=== PATIENT | male | born 1945 | race Caucasian/White ===

== ENCOUNTER 2016-06-05 21:08 | Inpatient (IN) | payer MEDICARE, BC ==
[2016-06-05 23:17] LABS: Hematocrit 45 % (42-52); Hemoglobin 14.5 g/dl (14.0-18.0); Mean Corpuscular HGB Conc 32 g/dl (31-36); Mean Corpuscular Hemoglobin 29 pg (27-31); Mean Corpuscular Volume 90 fL (80-94); Mean Platelet Volume 9 um3 (7.4-10.4); Red Blood Count 5.04 10^6/ul (4.0-5.4); Red Cell Distribution Width 15 % (10.5-15); White Blood Count 9.5 10^3/ul (3.5-10.8)
[2016-06-05 23:29] LABS: BUN/Creatinine Ratio 17.9 (8-20); Calcium 10.1 mg/dL (8.6-10.3); EGFR African American 83.8 (>60); EGFR Non-African American 65.2 (>60); Globulin 2.9 g/dL (2-4); Potassium 4.2 mmol/L (3.5-5.0); Total Bilirubin 0.5 mg/dL (0.2-1.0); Total Protein 6.9 g/dL (6.4-8.9)
[2016-06-05 23:34] LABS: Troponin I 0.18 ng/mL (<0.04)
--- NOTE | 2016-06-05 23:53 | ED ---
Anam Royal Janilya, scribed for Adalberto Ahuja MD on 06/05/16 at 2316 . Shortness of Breath - HPI Summary HPI Summary: A 70 y/o male came in to [facility] presenting w/ a sudden onset of intermittent SOB that occurred at 1400 and again at 1999. Pt states that he was walking out the door when he suddenly had SOB for about 8 minutes. He also felt weak and faint, and had a cough with SOB. Pt denies having any CP or fever. After this episode, pt felt much better and decided not to come to the ED. He went home and rested for the rest of the afternoon. At 1999, he walked around the living room when he had SOB once again, which prompted his visit to [facility] today. PMHx respiratory infection for about a month. It cleared up a week ago without any Abx. No SHx of tobacco use. - History of Current Complaint Chief Complaint: EDShortnessOfBreath Time Seen by Provider: 06/05/16 23:03 Hx Obtained From: Patient Onset/Duration: Sudden Onset, Lasting Minutes, Still Present Current Severity: Moderate Aggrevating Factors: Nothing Alleviating Factors: Nothing Associated Signs & Symptoms: Cough (Nonproductive) - Allergy/Home Medications Allergies/Adverse Reactions: Allergies Allergy/AdvReac Type Severity Reaction Status Date / Time Penicillins Allergy Severe Rash Verified 06/05/16 22:09 Bee Venom Allergy Anaphylatic Verified 06/05/16 22:09 Shock Home Medications: Home Medications Aspirin EC Low Dose* 81 mg PO DAILY 06/05/16 [History Confirmed 06/05/16] PMH/Surg Hx/FS Hx/Imm Hx Endocrine/Hematology History: Reports: Hx Diabetes Cardiovascular History: Reports: Hx Hypertension - TAKES MEDICATION Denies: Hx Pacemaker/ICD History: Denies: Hx Dialysis, Hx Renal Disease Sensory History: Denies: Hx Hearing Aid Psychiatric History: Denies: Hx Panic Disorder - Cancer History Cancer Type, 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) Hx Chemotherapy: No Hx Radiation Therapy: No - Surgical History Surgery Procedure, Year, and Place: PARATHYROID TUMOR SURGERY - Immunization History Date of Tetanus Vaccine: utd Date of Influenza Vaccine: utd Infectious Disease History: No Infectious Disease History: Denies: Traveled Outside the [place] in Last 30 Days - Family History Known Family History: Positive: Diabetes Negative: Hypertension - Social History Lives: With Family Alcohol Use: Rare Substance Use Type: Reports: None Smoking Status (MU): Never Smoked Tobacco Review of Systems Negative: Fever Negative: Chest Pain Positive: Shortness Of Breath, Cough Positive: Weakness All Other Systems Reviewed And Are Negative: Yes Physical Exam Triage Information Reviewed: Yes Vital Signs On Initial Exam: Initial Vitals Temp Pulse Resp BP Pulse Ox 97.6 F 105 20 158/104 96 06/05/16 21:30 06/05/16 21:30 06/05/16 21:30 06/05/16 21:30 06/05/16 21:30 Vital Signs Reviewed: Yes Appearance: Positive: No Pain Distress, Obese Skin: Positive: Warm Head/Face: Positive: Normal Head/Face Inspection Eyes: Positive: PANCHO ENT: Positive: Hearing grossly normal Neck: Positive: Supple Respiratory/Lung Sounds: Positive: Clear to Auscultation, Breath Sounds Present Cardiovascular: Positive: Normal Abdomen Description: Positive: Nontender, Soft Bowel Sounds: Positive: Present Musculoskeletal: Positive: Strength/ROM Intact Neurological: Positive: Sensory/Motor Intact Psychiatric: Positive: Affect/Mood Appropriate - Kimberlee Coma Scale Coma Scale Total: 15 Diagnostics - Vital Signs Vital Signs Temp Pulse Resp BP Pulse Ox 06/05/16 21:30 97.6 F 105 20 158/104 96 - Laboratory Lab Results: Lab Results 06/05/16 06/05/16 06/05/16 Range/Units 22:15 22:15 22:15 WBC 9.5 (3.5-10.8) 10^3/ul RBC 5.04 (4.0-5.4) 10^6/ul Hgb 14.5 (14.0-18.0) g/dl Hct 45 (42-52) % MCV 90 (80-94) fL MCH 29 (27-31) pg MCHC 32 (31-36) g/dl RDW 15 (10.5-15) % Plt Count 168 (150-450) 10^3/ul MPV 9 (7.4-10.4) um3 Neut % (Auto) 59.2 (38-83) % Lymph % (Auto) 28.2 (25-47) % Throckmorton % (Auto) 9.5 H (1-9) % Eos % (Auto) 2.5 (0-6) % Baso % (Auto) 0.6 (0-2) % Absolute Neuts (auto) 5.6 (1.5-7.7) 10^3/ul Absolute Lymphs (auto) 2.7 (1.0-4.8) 10^3/ul Absolute Monos (auto) 0.9 H (0-0.8) 10^3/ul Absolute Eos (auto) 0.2 (0-0.6) 10^3/ul Absolute Basos (auto) 0.1 (0-0.2) 10^3/ul Absolute Nucleated RBC 0.01 10^3/ul Nucleated RBC % 0.1 D-Dimer, Quantitative (Less Than 230) ng/mL Sodium 138 (133-145) mmol/L Potassium 4.2 (3.5-5.0) mmol/L Chloride 105 (101-111) mmol/L Carbon Dioxide 28 (22-32) mmol/L Anion Gap 5 (2-11) mmol/L BUN 20 (6-24) mg/dL Creatinine 1.12 (0.67-1.17) mg/dL Est GFR ( Amer) 83.8 (>60) Est GFR (Non-Af Amer) 65.2 (>60) BUN/Creatinine Ratio 17.9 (8-20) Glucose 117 H (70-100) mg/dL Lactic Acid 1.7 (0.5-2.0) mmol/L Calcium 10.1 (8.6-10.3) mg/dL Total Bilirubin 0.50 (0.2-1.0) mg/dL AST 20 (13-39) U/L ALT 17 (7-52) U/L Alkaline Phosphatase 59 (34-104) U/L Troponin I 0.18 H* (<0.04) ng/mL Total Protein 6.9 (6.4-8.9) g/dL Albumin 4.0 (3.2-5.2) g/dL Globulin 2.9 (2-4) g/dL Albumin/Globulin Ratio 1.4 (1-3) 06/05/16 Range/Units 22:15 WBC (3.5-10.8) 10^3/ul RBC (4.0-5.4) 10^6/ul Hgb (14.0-18.0) g/dl Hct (42-52) % MCV (80-94) fL MCH (27-31) pg MCHC (31-36) g/dl RDW (10.5-15) % Plt Count (150-450) 10^3/ul MPV (7.4-10.4) um3 Neut % (Auto) (38-83) % Lymph % (Auto) (25-47) % Throckmorton % (Auto) (1-9) % Eos % (Auto) (0-6) % Baso % (Auto) (0-2) % Absolute Neuts (auto) (1.5-7.7) 10^3/ul Absolute Lymphs (auto) (1.0-4.8) 10^3/ul Absolute Monos (auto) (0-0.8) 10^3/ul Absolute Eos (auto) (0-0.6) 10^3/ul Absolute Basos (auto) (0-0.2) 10^3/ul Absolute Nucleated RBC 10^3/ul Nucleated RBC % D-Dimer, Quantitative > 1050 H (Less Than 230) ng/mL Sodium (133-145) mmol/L Potassium (3.5-5.0) mmol/L Chloride (101-111) mmol/L Carbon Dioxide (22-32) mmol/L Anion Gap (2-11) mmol/L BUN (6-24) mg/dL Creatinine (0.67-1.17) mg/dL Est GFR ( Amer) (>60) Est GFR (Non-Af Amer) (>60) BUN/Creatinine Ratio (8-20) Glucose (70-100) mg/dL Lactic Acid (0.5-2.0) mmol/L Calcium (8.6-10.3) mg/dL Total Bilirubin (0.2-1.0) mg/dL AST (13-39) U/L ALT (7-52) U/L Alkaline Phosphatase (34-104) U/L Troponin I (<0.04) ng/mL Total Protein (6.4-8.9) g/dL Albumin (3.2-5.2) g/dL Globulin (2-4) g/dL Albumin/Globulin Ratio (1-3) Result Diagrams: 06/05/16 22:15 06/05/16 22:15 Lab Statement: Any lab studies that have been ordered have been reviewed, and results considered in the medical decision making process. - Radiology CXR Xray Interpretation: No Acute Changes - IMPRESSION: Normal Radiology Interpretation Completed By: ED Physician - Dr. Ahuja - EKG 2114 Cardiac Rate: NL - 88 bpm EKG Rhythm: Sinus Rhythm ST Segment: Normal Ectopy: None Re-Evaluation - Re-Evaluation First Eval Comment: results d/w pt Course/Dx - Diagnoses Provider Diagnoses: Pulmonary embolism - Physician Notifications Discussed Care of Patient With: Dr. Akbar (hospitalist) at 1022: agreed to evaluate pt for admission. - Critical Care Time Critical Care Time: 30-74 min Discharge - Discharge Plan Condition: Guarded Disposition: ADMITTED TO [facility] documentation as recorded by the Anam paulino Janilya accurately reflects the service I personally performed and the decisions made by Leigha davalos David, MD.
[2016-06-06] MEDS ORDERED: Iodixanol* (CONTRAST) 320 MG/ML 100 ML SDV IV ONE (01:57)
[2016-06-06] MEDS ORDERED: CABERGOLINE 0.25 MG PO SCH (03:15)
[2016-06-06] MEDS ORDERED: Dextrose 50% Syringe 50 ML* 25 GM/50 ML SYRINGE IV PUSH PRN (03:20)
[2016-06-06] MEDS ORDERED: Heparin VIAL(*) 5000 UNITS/ML VIAL (FIVE THOUSAND) IV SCH (04:00)
[2016-06-06 04:17] LABS: Hematocrit 43 % (42-52); Hemoglobin 13.9 g/dl (14.0-18.0); Mean Corpuscular HGB Conc 33 g/dl (31-36); Mean Corpuscular Hemoglobin 29 pg (27-31); Mean Corpuscular Volume 89 fL (80-94); Mean Platelet Volume 9 um3 (7.4-10.4); Red Blood Count 4.79 10^6/ul (4.0-5.4); Red Cell Distribution Width 15 % (10.5-15); White Blood Count 8.8 10^3/ul (3.5-10.8)
[2016-06-06] MEDS: Heparin DRIP 25,000 UNITS(*) 25,000 UNITS/500 ML BAG IV SCH ×3 (05:18→21:46)
--- NOTE | 2016-06-06 08:28 | HP ---
HISTORY AND PHYSICAL: DATE OF ADMISSION: 06/06/16. CHIEF COMPLAINT: Shortness of breath. HISTORY OF PRESENT ILLNESS: The patient is a 70-year-old gentleman who presents to the [facility] with a chief complaint that around 2 p.m. he started having acute episodes of shortness of breath. He noticed increased feelings of fatigue and just an overall feeling of unwellness. He was on his way here because of that, and around 2 minutes later he started feeling better and thought may be he more of it than he should. He went home and relaxed most of the day then. However, then again later in the day, he had increased shortness of breath. These feelings resurfaced when he came to the hospital. He did have some increased swelling in his legs. He had no increased shortness of breath lying flat. He never had any chest pain. He has never had any palpitations. In the ED, the patient was evaluated and finally found to have a bilateral pulmonary embolism. PAST MEDICAL HISTORY: Significant for: 1. Diabetes mellitus. 2. Prolactinoma. 3. MEN1 syndrome. 4. Hypertension. PAST SURGICAL HISTORY: Significant for parathyroidectomy x3. CURRENT MEDICATIONS: 1. Aspirin 81 mg daily. 2. Cabergoline 0.25 mg as directed. 3. Atenolol 25 mg daily. 4. Vitamin B12 1000 mg take 2 monthly. 5. Metformin 1000 mg twice daily. 6. Calcium with vitamin D 630 mg daily. ALLERGIES/ADVERSE REACTIONS: To PENICILLIN. FAMILY HISTORY: Father with diabetes, mother with diabetes. SOCIAL HISTORY: No tobacco, rare alcohol. He is a research qc scientist. REVIEW OF SYSTEMS: A 14-point review of systems was completed with the patient. All pertinent positives and negatives are in the history of present illness; otherwise, it is negative. PHYSICAL EXAMINATION GENERAL: Overweight gentleman lying in bed, in no acute distress. VITAL SIGNS: Blood pressure 116/73, pulse ox 100% on 2 L, respiratory rate 22 breaths per minute, heart rate is 70 beats per minute, temperature 97.8 degrees. HEENT: Normocephalic and atraumatic. Pupils equal, round and reactive to light. Moist mucous membranes. NECK: Supple with no JVD, bruits, palpable thyroid or lymphadenopathy. CHEST: Clear to auscultation and percussion bilaterally. CARDIOVASCULAR: S1, S2 appreciated. ABDOMEN: Positive bowel sounds in all 4 quadrants. Soft, nontender, nondistended. No hepatosplenomegaly. EXTREMITIES: No cyanosis or clubbing. He does have bilateral edema. NEUROLOGICAL: Alert and oriented x3, moves all extremities. SKIN: No rashes or abnormalities. DIAGNOSTIC STUDIES/LAB DATA: White count is 9.5, hemoglobin 14.5, hematocrit 45, platelets are 168. Sodium is 138, potassium 4.2, chloride is 105, CO2 28, BUN 20, creatinine 1.12, glucose is 117, troponin 0.18. D-dimer greater than 1050. Chest x-ray shows no acute infiltrates. EKG shows normal sinus rhythm at 88 beats per minute, normal axis, no acute ST- T wave changes. Chest CTA shows bilateral pulmonary emboli. ASSESSMENT AND PLAN: 1. Pulmonary embolism. Place the patient on heparin drip. Dr. Chand will see him later today and discuss the possible use of Xarelto, Eliquis or Coumadin. The patient might have a hypercoagulable workup as an outpatient. 2. Diabetes mellitus. Stable, home metformin, continue lispro sliding scale insulin. 3. Prolactinoma. Continue cabergoline. 4. Fluids, electrolytes, and nutrition. Consistent carb diet. 5. Deep vein thrombosis prophylaxis. Heparin drip. 6. The patient is a full code. TIME SPENT: Over 75 minutes were spent on this H and P, and more than 40 minutes of which was spent in direct bota-hi-miud contact with the patient in evaluation, physical exam, counseling, and coordination of care. CC: Dr. Sundeep Chand.* [id number] #: [id number] [facility]
[2016-06-06] MEDS: Calcium/Vitamin D TAB 250/125* TAB PO SCH (09:03)
[2016-06-06] MEDS: Aspirin EC Low Dose* 81 MG TAB.EC PO SCH (09:03)
[2016-06-06] MEDS: Atenolol TAB* 25 MG PO SCH (09:04)
[2016-06-06] MEDS: Insulin LISPRO* 1 UNITS UNIT SUBCUT SCH ×4 (09:04→21:04)
--- NOTE | 2016-06-06 10:40 | RAD ---
Indication: Chest pain. CTA of the chest performed after IV contrast administration. Coronal and sagittal reconstructed images were obtained. A total of Administered 96.0 ml of VISAPAQUE 320 mgi/ml was injected intravenously. The pulmonary arterial tree is well opacified. Large filling defects are noted in the left main pulmonary artery extending to the left lingular and lower lobar and segmental arteries. Filling defects are noted in the right main pulmonary artery extending into the right lower lobe and right middle lobe arteries extending into the segmental arteries. This is consistent with large pulmonary emboli bilaterally. The heart demonstrates no pericardial effusion. The trachea and major bronchi appear patent. The lung howell demonstrate no evidence of pleural fluid, nodules or masses. There is no mediastinal or hilar adenopathy noted. Inferior thyroid lobes are unremarkable. The heart demonstrates no pericardial effusion. The visualized abdominal organs are unremarkable. The bony structures are grossly unremarkable. IMPRESSION: BILATERALLY LARGE PULMONARY EMBOLI ARE NOTED IN BOTH PULMONARY ARTERIES EXTENDING INTO THE SEGMENTAL AND LOBAR BRANCHES OF BOTH LUNG HOWELL. NO EVIDENCE OF ALVEOLAR CONSOLIDATION IS NOTED.
[2016-06-06 11:32] LABS: Troponin I 0.09 ng/mL (<0.04)
--- NOTE | 2016-06-06 14:44 | ECHO ---
Amended Report Patient: EVA FERNANDEZ [facility] Rec#: [id number] : 1945 Date: 06/06/2016 Age: 70y Height: 172.7 cm / 68.0 in Weight: 135.2 kg / 298.0 lbs Sex: M BSA: 2.4 Room#: 431 Admit Date#: 06/06/2016 Type: Inpatient Referring: Gabriel Akbar MD Reading: Michelet Desai MD Machine Design Checker: Veronica Fofana RN RDCS CC: Sundeep Chand MD Transthoracic Echocardiogram Indication: Pulmonary embolism BP: 145/81 HR: 60 Rhythm: NSR Findings History: DM, HTN, morbid obesity, recent respiratory infection Technical Comments: The study is technically limited due to patient body habitus. Completed at 1305. Left Ventricle: The left ventricular chamber size is normal. Mild concentric left ventricular hypertrophy is observed. Mild global hypokinesis of the left ventricle is observed. There is mildly decreased left ventricular systolic function. The estimated ejection fraction is 45-50%. Abnormal left ventricular diastolic filling is observed, consistent with impaired relaxation. Left Atrium: The left atrium is mild to moderately dilated. Right Ventricle: The right ventricular cavity size is normal. The right ventricular global systolic function is moderately reduced. Right Atrium: The right atrium is mildly dilated. There is no evidence of patent foramen ovale shunting. on color doppler flow interrogation. There is evidence of an atrial septal aneurysm. Aortic Valve: The aortic valve is trileaflet. The aortic valve leaflets are mildly thickened. There is no evidence of aortic regurgitation. There is no evidence of aortic stenosis. Mitral Valve: The mitral valve leaflets are mildly thickened. There is a trace of mitral regurgitation. Tricuspid Valve: The tricuspid valve leaflets are normal. There is trace tricuspid regurgitation. There is evidence of moderate pulmonary hypertension. Pulmonic Valve: The pulmonic valve appears normal. There is no evidence of pulmonic regurgitation. There is no pulmonic stenosis. Pericardium: There is no significant pericardial effusion. A pericardial fat pad is visualized. Aorta: There is no dilatation of the ascending aorta. There is no dilatation of the aortic arch. The aortic root is normal in size. Pulmonary Artery: The main pulmonary artery is not well visualized. Venous: The inferior vena cava is dilated. There is an approximate 50% respiratory change in the inferior vena cava dimension. Conclusions There is mildly decreased left ventricular systolic function. The estimated ejection fraction is 45-50%. Mild global hypokinesis of the left ventricle is observed. The left ventricular chamber size is normal. Mild concentric left ventricular hypertrophy is observed. Abnormal left ventricular diastolic filling is observed, consistent with impaired relaxation. The left atrium is mild to moderately dilated. The right ventricular cavity size is normal. The right ventricular global systolic function is moderately reduced. The right atrium is mildly dilated. There is evidence of moderate pulmonary hypertension. There is no prior echocardiogram available to compare with at this time. These results have been called to the attention of the attending physician, Dr. Rosalia Enriquez. Measurements Name Value Normal Range RVIDd (AP) 2D 3 cm (0.9 - 2.6) RVDdMajor (2D) 3.72 cm (2.2 - 4.4) RAd ISD 4CH 5.1 cm (3.4 - 4.9) RA (A4C)W 4.3 cm (2.9 - 4.6) IVSd (2D) 1.4 cm (0.6 - 1) LVPWd (2D) 1 cm (0.6 - 1) LVIDd (2D) 5 cm (3.6 - 5.4) LVIDs (2D) 3.9 cm - LV FS (2D) 22 % (25 - 45) Aortic Annulus 2.5 cm (1.4 - 2.6) Ao root diameter (2D) 3.2 cm (2.1 - 3.5) Ascending Ao 3 cm (2.1 - 3.4) Aortic arch 2.5 cm (1.8 - 3.4) LA dimension (AP) 2D 3.3 cm (2.3 - 3.8) LAd ISD 4CH 5.7 cm (2.9 - 5.3) LA ISD 4CH W 4.1 cm (2.5 - 4.5) Name Value Normal Range LA ESV SP 4CH (A/L) 58 ml - LA ESV SP 2CH (A/L) 71 ml - LA ESV BP (A/L) 65 ml - LA ESV BP (A/L) index 27 ml/m2 - LA ESV SP 4CH (MOD) 55 ml - LA ESV SP 2CH (MOD) 68 ml - Name Value Normal Range MV E-wave Vmax 0.45 m/sec - MV deceleration time 279 msec - MV A-wave Vmax 0.74 m/sec - MV E:A ratio 0.6 ratio - LV septal e' Vmax 0.07 m/sec - LV lateral e' Vmax 0.07 m/sec - LV E:e' septal ratio 6.4 ratio - LV E:e' lateral ratio 6.4 ratio - Name Value Normal Range AV Vmax 1.2 m/sec - LVOT Vmax 1.1 m/sec - CHERRIE Vmax 0.8 m/sec - Name Value Normal Range TR Vmax 3.1 m/sec - TR peak gradient 38 mmHg - RAP 15 mmHg - RVSP 53 mmHg - IVC diameter 2.6 cm - Name Value Normal Range PV Vmax 0.56 m/sec -
[2016-06-06] MEDS ORDERED: Warfarin TAB(*) 10 MG PO ONE (17:00)
--- NOTE | 2016-06-06 19:07 | RAD ---
Indication: Pulmonary emboli Duplex Doppler sonography of the deep venous system of both lower extremities was performed. Bilaterally the common femoral veins, proximal greater saphenous veins, proximal deep femoral veins, femoral veins, appear patent and compressible. The left popliteal vein and posterior tibial veins appear patent and compressible. The right popliteal vein and one of the paired posterior tibial vein demonstrates echogenic material within it with noncompressibility and no flow. This is consistent with deep venous thrombosis. The peroneal veins are limited in evaluation bilaterally due to body habitus. IMPRESSION: DEEP VENOUS THROMBOSIS OF THE RIGHT POPLITEAL VEIN AND ONE OF THE PAIRED RIGHT POSTERIOR TIBIAL VEINS. PERONEAL VEINS ARE NOT VISUALIZED BILATERALLY.
[2016-06-07 04:06] LABS: Hematocrit 42 % (42-52); Hemoglobin 13.7 g/dl (14.0-18.0); Mean Corpuscular HGB Conc 33 g/dl (31-36); Mean Corpuscular Hemoglobin 29 pg (27-31); Mean Corpuscular Volume 88 fL (80-94); Mean Platelet Volume 9 um3 (7.4-10.4); Red Blood Count 4.77 10^6/ul (4.0-5.4); Red Cell Distribution Width 15 % (10.5-15); White Blood Count 7.8 10^3/ul (3.5-10.8)
[2016-06-07 04:23] LABS: BUN/Creatinine Ratio 12.6 (8-20); Calcium 9.9 mg/dL (8.6-10.3); EGFR African American 84.7 (>60); EGFR Non-African American 65.9 (>60); Potassium 4.1 mmol/L (3.5-5.0)
--- NOTE | 2016-06-07 08:03 | PN ---
Subjective - Subjective Reason for Note: Progress Note History: I reviewed the Mr Rushing's presentation with the patient and Dr. Fatima's H and P. He states he has a URI for several weeks and was more sedentary and on the day of presentation he had 3 long phone calls and sat on a chair that was more firm than usual and that might have compressed his leg veins. He developed acute dyspnea, no chest pain and this lasted 15 mins, he then had more dyspnea than usual and hence came to the ED. He is currently being treated with warfarin and unfractionated heparin. His high BMI may preclude the use of both subcutaneous fractionated heparin and factor Xa inhibitors. Today he is feeling fine - no chest pain, dyspnea and his O2 sats are in the 90s on room air. 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 obesity) (Chronic) E66.01 Prolactinoma (Chronic) D35.2 Type 2 diabetes mellitus, controlled (Chronic) E11.9 Current Medications: Current Medications Aspirin (Aspirin Ec Low Dose*) 81 mg PO DAILY [facility] Last Admin: 06/06/16 09:03 Dose: 81 mg Atenolol (Tenormin Tab*) 25 mg PO DAILY [facility] Last Admin: 06/06/16 09:04 Dose: 25 mg Calcium/Vitamin D (Oscal D Tab 250/125*) 1 tab PO DAILY [facility] Last Admin: 06/06/16 09:03 Dose: 1 tab Cyanocobalamin (Vitamin B12 Inj *) 1,000 mcg IM MONTHLY [facility] Dextrose (D50w Syringe 50 Ml*) 12.5 gm IV PUSH .FOR FS < 60 - SS PRN PRN Reason: FS < 60 Heparin Sodium (Porcine) (Heparin Vial(*)) 0 units IV .PER PROTOCOL [facility] PRN Reason: Protocol Heparin Sodium/Dextrose (Heparin Drip 25,000 Units(*)) 25,000 units in 500 mls @ 0 mls/hr IV .NO INITIAL BOLUS [facility]; As Directed PRN Reason: Protocol Last Admin: 06/06/16 21:46 Dose: 30 mls/hr Insulin Human Lispro (Humalog*) 0 units SUBCUT ACHS [facility] PRN Reason: Protocol Last Admin: 06/06/16 21:04 Dose: Not Given Cabergoline 0.25 Mg 0.25 mg PO .SEE INSTRUCTIONS [facility] Pharmacy Profile Note (Coumadin Daily Reminder*) 1 note FOLLOW UP 1700 [facility] Last Admin: 06/06/16 21:49 Dose: Not Given Home Medications: Home Medications Medication Instructions Recorded Confirmed Type Atenolol 25 mg PO DAILY 03/02/12 06/05/16 History Cabergoline 0.25 mg PO SEE INSTRUCTIONS 03/02/12 06/05/16 History Calcium + D 630 mg PO DAILY 03/02/12 06/05/16 History Vitamin B 12 1,000 mg INJ MONTHLY 03/02/12 06/05/16 History metFORMIN TAB* 1,000 mg PO BID 03/02/12 06/05/16 History Aspirin EC Low Dose* 81 mg PO DAILY 06/05/16 06/05/16 History Allergies: Allergies Allergy/AdvReac Type Severity Reaction Status Date / Time Penicillins Allergy Severe Rash Verified 06/05/16 22:09 Bee Venom Allergy Anaphylatic Verified 06/05/16 22:09 Shock Objective - Vital Signs Vital Signs: Vital Signs 06/06/16 06/06/16 06/06/16 08:00 11:55 16:15 Temperature 98.1 F 98.3 F Pulse Rate 64 62 Respiratory 16 16 14 Rate Blood Pressure 134/81 120/74 (mmHg) O2 Sat by Pulse 92 96 Oximetry 06/06/16 06/06/16 06/06/16 20:00 20:53 23:31 Temperature 98.5 F 97.8 F Pulse Rate 59 66 Respiratory 16 20 16 Rate Blood Pressure 137/78 141/67 (mmHg) O2 Sat by Pulse 96 94 Oximetry 06/07/16 03:42 Temperature 98.0 F Pulse Rate 70 Respiratory 16 Rate Blood Pressure 138/68 (mmHg) O2 Sat by Pulse 91 Oximetry - Intake and Output Intake and Output: Intake & Output 06/04/16 06/05/16 06/06/16 06/07/16 11:59 11:59 11:59 11:59 Intake Total 200 1800 Balance 200 1800 Weight 300 lb 12.8 oz Intake: Oral 200 1800 Other: Estimated Void Large Medium # Bowel Movements 0 0 # Voids 1 0 ADLs: Meal Record Start: 06/06/16 04: 04 Freq: DAILY@0900,1400,1800 Status: Active Document 06/06/16 09:00 [id number] (Rec: 06/06/16 09:44 [id number] [id number]) Document 06/06/16 14:00 [id number] (Rec: 06/06/16 14:42 [id number] TELE-C10) Document 06/06/16 18:00 [id number] (Rec: 06/06/16 21:10 [id number] TELE-C33) Intake and Output Start: 06/06/16 04: 04 Freq: DAILY@0600,1400,2200 Status: Active Document 06/06/16 06:00 [id number] (Rec: 06/06/16 06:11 [id number] TELE-C34) Document 06/06/16 14:00 [id number] (Rec: 06/06/16 14:42 [id number] TELE-C10) Document 06/06/16 22:00 [id number] (Rec: 06/06/16 23:06 [id number] TELE-C33) Document 06/07/16 05:40 [id number] (Rec: 06/07/16 05:41 [id number] TELE-C34) - Physical Exam General Physical Exam Comment: Sitting comfortably in a chair - hemodynamically stable General: No Cyanosis, No Anemia, No Jaundice, No Lymphadenopathy, No Clubbing Endocrine: Yes Central Obesity, No Acromegaly, No Vitiligo, No Flushing, No Acanthosis nigricans, No Violaceious striae, No [place] Syndrome, No Buccal pigmenatation, No Leong Crease Pigmentation Lungs and Chest: Yes: Chest Expansion Full, Chest Expansion Symetrica, Percussion Note Resonant, Vessicular Breath Sounds. No: Crackles, Wheezes Heart Rate and Rhythm: Regular JVP: Not Elevated Additional Cardiovascular: Yes: Normal Heart Sounds. No: Heart Murmur, Pedal Edema Abdominal Exam: Yes: Soft, Bowel Sounds Present. No: Distention, Hepatomegaly, Abdominal Tenderness - Extremities Cranial Nerves II-XII Intact: Yes Limbs: Normal Power, Normal Tone Results - Results Lab Results: Laboratory Results - last 24 hr 06/06/16 06/06/16 06/06/16 07:48 08:00 12:13 WBC RBC Hgb Hct MCV MCH MCHC RDW Plt Count MPV Neut % (Auto) Lymph % (Auto) Alpine % (Auto) Eos % (Auto) Baso % (Auto) Absolute Neuts (auto) Absolute Lymphs (auto) Absolute Monos (auto) Absolute Eos (auto) Absolute Basos (auto) Absolute Nucleated RBC Nucleated RBC % INR (Anticoag Therapy) APTT Sodium Potassium Chloride Carbon Dioxide Anion Gap BUN Creatinine Est GFR ( Amer) Est GFR (Non-Af Amer) BUN/Creatinine Ratio Glucose 232 H POC Glucose (mg/dL) 401 H* 101 Calcium Troponin I 0.09 H* 06/06/16 06/06/16 06/06/16 13:35 16:16 20:56 WBC RBC Hgb Hct MCV MCH MCHC RDW Plt Count MPV Neut % (Auto) Lymph % (Auto) Alpine % (Auto) Eos % (Auto) Baso % (Auto) Absolute Neuts (auto) Absolute Lymphs (auto) Absolute Monos (auto) Absolute Eos (auto) Absolute Basos (auto) Absolute Nucleated RBC Nucleated RBC % INR (Anticoag Therapy) 0.95 APTT 78.1 H Sodium Potassium Chloride Carbon Dioxide Anion Gap BUN Creatinine Est GFR ( Amer) Est GFR (Non-Af Amer) BUN/Creatinine Ratio Glucose POC Glucose (mg/dL) 158 H 107 H Calcium Troponin I 06/06/16 06/07/16 06/07/16 22:33 03:51 03:52 WBC RBC Hgb Hct MCV MCH MCHC RDW Plt Count MPV Neut % (Auto) Lymph % (Auto) Alpine % (Auto) Eos % (Auto) Baso % (Auto) Absolute Neuts (auto) Absolute Lymphs (auto) Absolute Monos (auto) Absolute Eos (auto) Absolute Basos (auto) Absolute Nucleated RBC Nucleated RBC % INR (Anticoag Therapy) 1.00 APTT 98.3 H Sodium 134 Potassium 4.1 Chloride 105 Carbon Dioxide 24 Anion Gap 5 BUN 14 Creatinine 1.11 Est GFR ( Amer) 84.7 Est GFR (Non-Af Amer) 65.9 BUN/Creatinine Ratio 12.6 Glucose 127 H POC Glucose (mg/dL) Calcium 9.9 Troponin I 06/07/16 06/07/16 03:57 06:11 WBC 7.8 RBC 4.77 Hgb 13.7 L Hct 42 MCV 88 MCH 29 MCHC 33 RDW 15 Plt Count 160 MPV 9 Neut % (Auto) 51.5 Lymph % (Auto) 34.8 Alpine % (Auto) 8.7 Eos % (Auto) 4.3 Baso % (Auto) 0.7 Absolute Neuts (auto) 4.0 Absolute Lymphs (auto) 2.7 Absolute Monos (auto) 0.7 Absolute Eos (auto) 0.3 Absolute Basos (auto) 0.1 Absolute Nucleated RBC 0 Nucleated RBC % 0.1 INR (Anticoag Therapy) APTT 66.4 H Sodium Potassium Chloride Carbon Dioxide Anion Gap BUN Creatinine Est GFR ( Amer) Est GFR (Non-Af Amer) BUN/Creatinine Ratio Glucose POC Glucose (mg/dL) Calcium Troponin I Radiology Results: Patient Name: EVA RUSHING Medical Record#: [id number] Ordering Physician: Gabriel Akbar MD Acct.#: [id number] : 1945 Age: 70 Sex: M Location: [address] [place] [address]/TELEMETRY Exam Date: 06/06/16319 ADM Status: ADM IN Order Information: VL LOWER EXT VEINS BILATERAL Accession Number: [id number] CPT: 18618 Indication: Pulmonary emboli Duplex Doppler sonography of the deep venous system of both lower extremities was performed. Bilaterally the common femoral veins, proximal greater saphenous veins, proximal deep femoral veins, femoral veins, appear patent and compressible. The left popliteal vein and posterior tibial veins appear patent and compressible. The right popliteal vein and one of the paired posterior tibial vein demonstrates echogenic material within it with noncompressibility and no flow. This is consistent with deep venous thrombosis. The peroneal veins are limited in evaluation bilaterally due to body habitus. IMPRESSION: DEEP VENOUS THROMBOSIS OF THE RIGHT POPLITEAL VEIN AND ONE OF THE PAIRED RIGHT POSTERIOR TIBIAL VEINS. PERONEAL VEINS ARE NOT VISUALIZED BILATERALLY. <Electronically signed by Abigail Nolan MD in OV> 06/06/161903 Dictated By: Abigail Nolan MD Dictated Date/Time: 06/06/161903 Transcribed Date/Time: 06/06/161901 Copy to: CC:Sundeep Chand MD; Gabriel Akbar MD Imaging - [facility] Imaging - [facility] Imaging - [facility] [address] [address] [place] [address] [place] [address] ph [phone]) ph ([phone]) ph ([phone]) Patient Name: EVA RUSHING Medical Record#: [id number] Ordering Physician: Adalberto Ahuja MD Acct.#: [id number] : 1945 Age: 70 Sex: M Location: [address] [place] [address] - MEDICAL/TELEMETRY Exam Date: 06/05/162351 ADM Status: ADM IN Order Information: CTA CHEST Accession Number: [id number] CPT: 73776 Indication: Chest pain. CTA of the chest performed after IV contrast administration. Coronal and sagittal reconstructed images were obtained. A total of Administered 96.0 ml of VISAPAQUE 320 mgi/ml was injected intravenously. The pulmonary arterial tree is well opacified. Large filling defects are noted in the left main pulmonary artery extending to the left lingular and lower lobar and segmental arteries. Filling defects are noted in the right main pulmonary artery extending into the right lower lobe and right middle lobe arteries extending into the segmental arteries. This is consistent with large pulmonary emboli bilaterally. The heart demonstrates no pericardial effusion. The trachea and major bronchi appear patent. The lung howell demonstrate no evidence of pleural fluid, nodules or masses. There is no mediastinal or hilar adenopathy noted. Inferior thyroid lobes are unremarkable. The heart demonstrates no pericardial effusion. The visualized abdominal organs are unremarkable. The bony structures are grossly unremarkable. IMPRESSION: BILATERALLY LARGE PULMONARY EMBOLI ARE NOTED IN BOTH PULMONARY ARTERIES EXTENDING INTO THE SEGMENTAL AND LOBAR BRANCHES OF BOTH LUNG HOWELL. NO EVIDENCE OF ALVEOLAR CONSOLIDATION IS NOTED. <Electronically signed by Abigail Nolan MD in OV> 06/06/16 1036 Dictated By: Abigail Nolan MD Dictated Date/Time: 06/06/16 1036 Transcribed Date/Time: 06/06/16 1027 Copy to: CC:Sundeep Chand MD; Adalberto Ahuja MD; Gabriel Akbar MD Imaging - [facility] Imaging - [facility] Imaging - [facility] [address] [place] [address] [place] [address] [place] [address] ph ([phone]) ph ([phone]) ph ([phone]) 1 of 1 1 of 1 Other Results/Reports: Transthoraic echocardiogram conclusions: Conclusions There is mildly decreased left ventricular systolic function. The estimated ejection fraction is 45-50%. Mild global hypokinesis of the left ventricle is observed. The left ventricular chamber size is normal. Mild concentric left ventricular hypertrophy is observed. Abnormal left ventricular diastolic filling is observed, consistent with impaired relaxation. The left atrium is mild to moderately dilated. The right ventricular cavity size is normal. The right ventricular global systolic function is moderately reduced. The right atrium is mildly dilated. 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 We will review the indications for fractionated heparin and also Xa inhibitors. 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 However, his FS seem good with diet alone and he has coverage with lispro written. I spoke with the patient and he agrees with the management plan
--- NOTE | 2016-06-07 08:19 | RAD ---
Indication: Shortness of breath. 2 views of the chest including dual energy PA views demonstrate no mediastinal shift. Heart is of normal size and configuration. Lung antonio demonstrate no pleural fluid, pneumonia or pneumothorax. The left hemidiaphragm is noted. IMPRESSION: No active cardiopulmonary disease is noted.
[2016-06-07] MEDS: Insulin LISPRO* 1 UNITS UNIT SUBCUT SCH ×4 (08:24→21:24)
[2016-06-07] MEDS: Aspirin EC Low Dose* 81 MG TAB.EC PO SCH (08:25)
[2016-06-07] MEDS: Atenolol TAB* 25 MG PO SCH (08:26)
[2016-06-07] MEDS: Calcium/Vitamin D TAB 250/125* TAB PO SCH (08:26)
[2016-06-07] MEDS ORDERED: Iodixanol* (CONTRAST) 320 MG/ML 100 ML SDV IV SCH (09:07)
--- NOTE | 2016-06-07 09:36 | RAD ---
INDICATION: Recent pulmonary emboli. Evaluate for abdominal abnormality. COMPARISON: CTA chest June 06, 2016 TECHNIQUE: Axial source images were obtained from the hemidiaphragms to the symphysis pubis following administration of oral and intravenous contrast. 141 mL Visipaque 320 was utilized. Coronal and sagittal reconstructed images were acquired. Lung bases: The lung bases are clear. Liver: There is hepatic steatosis. There are no masses. There is no ductal dilatation. Gallbladder: There are no calcified gallstones. There is no evidence of wall thickening or pericholecystic fluid. Spleen: The spleen is normal in size. There are no masses. Pancreas: There is a cystic lesion in the body of pancreas measuring 1.6 cm a second cystic lesion in the tail measuring 0.8 cm. There is no ductal dilatation Adrenal glands: There is no evidence of adrenal mass. Kidneys: The kidneys are normal in size and position. There are prompt nephrograms and there is prompt excretion bilaterally. There is a 1.6 cm cyst in the upper pole of the left kidney There is no evidence of nephrolithiasis. Adenopathy: There is no evidence of adenopathy by size criteria. Fluid collections: There are no free or localized fluid collections. Vessels:There are no significant atherosclerotic changes involving the aorta. There is no focal aneurysm. The iliac vessels are normal in caliber. The IVC appears normal. GI tract: There are no acute CT bowel findings. There is no obstruction. The stomach and small bowel appear normal. The lower GI tract is remarkable for scattered diverticula of the sigmoid colon. The cecum, ileocecal valve, and terminal ileum appear normal. The appendix is visualized and appear normal. Pelvic organs: The prostate and seminal vesicles appear normal Bladder: There are no bladder masses. Abdominal and pelvic soft tissues: There are presumed injection granulomas in the anterior lower abdomen/pelvis. Osseous structures: There are no acute osseous findings. There is spondylitic change. Other: None IMPRESSION: 1. Mild hepatic steatosis 2. Indeterminant cystic pancreatic lesions. Suggest a follow-up, dedicated, CT examination of the pancreas. 3. Left renal cyst. 4. Scattered diverticula sigmoid colon. No significant acute diverticulitis.
[2016-06-07] MEDS ORDERED: Warfarin TAB(*) 10 MG PO ONE (18:00)
[2016-06-07] MEDS: Heparin DRIP 25,000 UNITS(*) 25,000 UNITS/500 ML BAG IV SCH (20:34)
[2016-06-08 01:59] LABS: Hematocrit 40 % (42-52); Hemoglobin 12.8 g/dl (14.0-18.0); Mean Corpuscular HGB Conc 33 g/dl (31-36); Mean Corpuscular Hemoglobin 29 pg (27-31); Mean Corpuscular Volume 88 fL (80-94); Mean Platelet Volume 9 um3 (7.4-10.4); Red Blood Count 4.47 10^6/ul (4.0-5.4); Red Cell Distribution Width 15 % (10.5-15); White Blood Count 7.6 10^3/ul (3.5-10.8)
[2016-06-08] MEDS: Insulin LISPRO* 1 UNITS UNIT SUBCUT SCH (07:54)
[2016-06-08] MEDS: Aspirin EC Low Dose* 81 MG TAB.EC PO SCH (07:56)
[2016-06-08] MEDS: Atenolol TAB* 25 MG PO SCH (07:56)
[2016-06-08] MEDS: Calcium/Vitamin D TAB 250/125* TAB PO SCH (07:56)
--- NOTE | 2016-06-08 08:39 | PN ---
Subjective - Subjective Reason for Note: Discharge Note History: He has had no symptoms from either his right DVTs or from his PE. No dyspnea at rest or upon exertion, no O2 desaturation, no chest pain/pressure. He has had no cough/hemoptysis. 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 obesity) (Chronic) E66.01 Prolactinoma (Chronic) D35.2 Type 2 diabetes mellitus, controlled (Chronic) E11.9 Current Medications: Current Medications Aspirin (Aspirin Ec Low Dose*) 81 mg PO DAILY [facility] Last Admin: 06/08/16 07:56 Dose: 81 mg Atenolol (Tenormin Tab*) 25 mg PO DAILY [facility] Last Admin: 06/08/16 07:56 Dose: 25 mg Calcium/Vitamin D (Oscal D Tab 250/125*) 1 tab PO DAILY [facility] Last Admin: 06/08/16 07:56 Dose: 1 tab Cyanocobalamin (Vitamin B12 Inj *) 1,000 mcg IM MONTHLY [facility] Dextrose (D50w Syringe 50 Ml*) 12.5 gm IV PUSH .FOR FS < 60 - SS PRN PRN Reason: FS < 60 Heparin Sodium (Porcine) (Heparin Vial(*)) 0 units IV .PER PROTOCOL [facility] PRN Reason: Protocol Last Admin: 06/08/16 02:18 Dose: 3,800 units Heparin Sodium/Dextrose (Heparin Drip 25,000 Units(*)) 25,000 units in 500 mls @ 0 mls/hr IV .NO INITIAL BOLUS [facility]; As Directed PRN Reason: Protocol Last Admin: 06/07/16 20:34 Dose: 20 mls/hr Insulin Human Lispro (Humalog*) 0 units SUBCUT ACHS [facility] PRN Reason: Protocol Last Admin: 06/08/16 07:54 Dose: 2 units Iodixanol (Visipaque* 320 (Contrast)) 141 ml IV ONCE [facility] Stop: 06/09/16 23:59 Cabergoline 0.25 Mg 0.25 mg PO .SEE INSTRUCTIONS [facility] Pharmacy Profile Note (Coumadin Daily Reminder*) 1 note FOLLOW UP 1700 [facility] Last Admin: 06/07/16 17:23 Dose: Not Given Home Medications: Home Medications Medication Instructions Recorded Confirmed Type Atenolol 25 mg PO DAILY 03/02/12 06/05/16 History Cabergoline 0.25 mg PO SEE INSTRUCTIONS 03/02/12 06/05/16 History Calcium + D 630 mg PO DAILY 03/02/12 06/05/16 History Vitamin B 12 1,000 mg INJ MONTHLY 03/02/12 06/05/16 History metFORMIN TAB* 1,000 mg PO BID 03/02/12 06/05/16 History Allergies: Allergies Allergy/AdvReac Type Severity Reaction Status Date / Time Penicillins Allergy Severe Rash Verified 06/05/16 22:09 Bee Venom Allergy Anaphylatic Verified 06/05/16 22:09 Shock Objective - Vital Signs Vital Signs: Vital Signs 06/07/16 06/07/16 06/07/16 11:07 16:03 20:00 Temperature 97.7 F 98.6 F Pulse Rate 59 70 Respiratory 16 14 20 Rate Blood Pressure 120/69 153/79 (mmHg) O2 Sat by Pulse 97 96 Oximetry 06/07/16 06/08/16 06/08/16 20:02 00:12 04:21 Temperature 98.1 F 98.0 F 98.2 F Pulse Rate 67 78 72 Respiratory 14 20 20 Rate Blood Pressure 144/73 145/81 123/63 (mmHg) O2 Sat by Pulse 96 91 91 Oximetry 06/08/16 08:00 Temperature Pulse Rate Respiratory 20 Rate Blood Pressure (mmHg) O2 Sat by Pulse Oximetry - Intake and Output Intake and Output: Intake & Output 06/05/16 06/06/16 06/07/16 06/08/16 11:59 11:59 11:59 11:59 Intake Total 200 2040 1371 Output Total 0 Balance 200 2040 1371 Weight 300 lb 12.8 oz 300 lb Intake: IVPB 371 NS (0.9%) 371 Oral 200 2040 1000 Output: Urine 0 Other: Estimated Void Large Medium Medium # Bowel Movements 0 0 0 # Voids 1 0 1 ADLs: Meal Record Start: 06/06/16 04: 04 Freq: DAILY@0900,1400,1800 Status: Active Document 06/06/16 09:00 [id number] (Rec: 06/06/16 09:44 [id number] TELE-C10) Document 06/06/16 14:00 [id number] (Rec: 06/06/16 14:42 [id number] TELE-C10) Document 06/06/16 18:00 [id number] (Rec: 06/06/16 21:10 [id number] TELE-C33) Document 06/07/16 09:00 [id number] (Rec: 06/07/16 14:54 [id number] TELE-C01) Document 06/07/16 14:00 [id number] (Rec: 06/07/16 14:54 [id number] TELE-C01) Document 06/07/16 18:00 (Rec: 06/07/16 22:07 [id number] TELE-C01) Intake and Output Start: 06/06/16 04: 04 Freq: DAILY@0600,1400,2200 Status: Active Document 06/06/16 06:00 [id number] (Rec: 06/06/16 06:11 [id number] TELE-C34) Document 06/06/16 14:00 [id number] (Rec: 06/06/16 14:42 [id number] TELE-C10) Document 06/06/16 22:00 [id number] (Rec: 06/06/16 23:06 [id number] TELE-C33) Document 06/07/16 05:40 [id number] (Rec: 06/07/16 05:41 [id number] TELE-C34) Document 06/07/16 14:00 [id number] (Rec: 06/07/16 14:54 [id number] TELE-C01) Document 06/07/16 22:00 [id number] (Rec: 06/07/16 22:57 [id number] TELE-C01) Document 06/08/16 06:00 [id number] (Rec: 06/08/16 06:37 [id number] TELE-C35) - Physical Exam General Physical Exam Comment: warm and well perfused General: No Cyanosis, No Anemia, No Jaundice, No Lymphadenopathy, No Clubbing Endocrine: Yes Central Obesity Lungs and Chest: Yes: Chest Expansion Full, Chest Expansion Symetrica, Percussion Note Resonant, Vessicular Breath Sounds. No: Crackles, Wheezes Heart Rate and Rhythm: Regular JVP: Not Elevated Additional Cardiovascular: Yes: Normal Heart Sounds. No: Heart Murmur, Pedal Edema Abdominal Exam: Yes: Distention, Soft. No: Abdominal Tenderness Results - Results Lab Results: Laboratory Results - last 24 hr 06/07/16 06/07/16 06/07/16 08:33 12:28 16:13 WBC RBC Hgb Hct MCV MCH MCHC RDW Plt Count MPV Neut % (Auto) Lymph % (Auto) [place] % (Auto) Eos % (Auto) Baso % (Auto) Absolute Neuts (auto) Absolute Lymphs (auto) Absolute Monos (auto) Absolute Eos (auto) Absolute Basos (auto) Absolute Nucleated RBC Nucleated RBC % INR (Anticoag Therapy) APTT 71.6 H 49.1 H BUN POC Glucose (mg/dL) 114 H 06/07/16 06/07/16 06/08/16 16:52 21:17 01:41 WBC RBC Hgb Hct MCV MCH MCHC RDW Plt Count MPV Neut % (Auto) Lymph % (Auto) [place] % (Auto) Eos % (Auto) Baso % (Auto) Absolute Neuts (auto) Absolute Lymphs (auto) Absolute Monos (auto) Absolute Eos (auto) Absolute Basos (auto) Absolute Nucleated RBC Nucleated RBC % INR (Anticoag Therapy) APTT 47.9 H BUN POC Glucose (mg/dL) 128 H 140 H 06/08/16 06/08/16 06/08/16 01:48 01:48 04:12 WBC 7.6 RBC 4.47 Hgb 12.8 L Hct 40 L MCV 88 MCH 29 MCHC 33 RDW 15 Plt Count 140 L MPV 9 Neut % (Auto) 52.5 Lymph % (Auto) 30.9 [place] % (Auto) 9.6 H Eos % (Auto) 4.4 Baso % (Auto) 2.6 H Absolute Neuts (auto) 4.0 Absolute Lymphs (auto) 2.3 Absolute Monos (auto) 0.7 Absolute Eos (auto) 0.3 Absolute Basos (auto) 0.2 Absolute Nucleated RBC 0 Nucleated RBC % 0 INR (Anticoag Therapy) 1.17 H APTT BUN 16 POC Glucose (mg/dL) 06/08/16 07:35 WBC RBC Hgb Hct MCV MCH MCHC RDW Plt Count MPV Neut % (Auto) Lymph % (Auto) [place] % (Auto) Eos % (Auto) Baso % (Auto) Absolute Neuts (auto) Absolute Lymphs (auto) Absolute Monos (auto) Absolute Eos (auto) Absolute Basos (auto) Absolute Nucleated RBC Nucleated RBC % INR (Anticoag Therapy) APTT BUN POC Glucose (mg/dL) 139 H Radiology Results: [facility] Patient Name:EVA FERNANDEZ MR:[id number] : 1945 3. Left renal cyst. 4. Scattered diverticula sigmoid colon. No significant acute diverticulitis. <Electronically signed by Tai Brady MD in OV> 06/07/16932 Dictated By: Tai Brady MD Dictated Date/Time: 06/07/16932 Transcribed Date/Time: 06/07/16920 Copy to: CC:Sundeep Chand MD; Rosalia Enriquez MD; Gabriel Akbar MD Imaging - [facility] Imaging - [facility] Imaging - [facility] [id number] [place] [address] ph [phone]) ph ([phone]) ph ([phone]) 2 of 2 Assessment - Problem List Assessment: Patient Problems Deep vein thrombosis (DVT) of right lower extremity (Acute) Pulmonary embolism (Acute) Essential hypertension (Chronic) History of hyperparathyroidism (Chronic) 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) Obesity, Class III, BMI 40-49.9 (morbid obesity) (Chronic) Prolactinoma (Chronic) Type 2 diabetes mellitus, controlled (Chronic) Plan: Patient Problems Deep vein thrombosis (DVT) of right lower extremity (Acute)Pulmonary embolism ( Acute) We will discharge him on eliquis 10 mg bid Essential hypertension (Chronic) controlled History of hyperparathyroidism (Chronic) 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 I discussed the above in detail with the patient, who agrees with the management.
[2016-06-08 08:50] VITALS: BP 126/72
[2016-06-08] MEDS ORDERED: Apixaban* 5 MG TAB PO ONE (10:00)
[2016-06-10] MEDS ORDERED: Cyanocobalamin INJ * 1,000 MCG/ML VIAL 1 ML VIAL IM SCH (03:15)
--- NOTE | 2016-06-14 02:58 | DS ---
DISCHARGE SUMMARY: DATE OF ADMISSION: 06/05/16 DATE OF DISCHARGE: 06/08/16 DISCHARGE DIAGNOSES: 1. Pulmonary embolism. 2. Right-sided deep vein thrombosis. 3. Dyspnea. SECONDARY DIAGNOSES: 1. Morbid obesity, BMI 45. 2. Multiple endocrine neoplasia type 1. 3. History of primary hypoparathyroidism and pituitary tumor secreting prolactin. 4. Type 2 diabetes mellitus. 5. Essential hypertension. HISTORY: Manjinder Rushing is a 70-year-old [facility] [employer] [employer] with an expertise on blood clot coagulation. His presentation is documented in Dr. Gabriel Akbar's admitting history and physical. In short, he had been in good health but on the day of presentation, was on several long phone calls and was sitting on an uncomfortable chair, which thrust into his popliteal fossa on both sides. At around 2 p.m., he developed acute shortness of breath. This slightly improved and then again he had increasing unusual shortness of breath in the evening and went to the hospital. He did not have chest pain, palpitations. He was found in the emergency room to have pulmonary emboli. On physical examination, vital signs: Blood pressure 116/73, oximetry 100% on 2 L, respiratory rate 22, heart rate 70, temperature 97.8. No focal findings on examination. LABORATORY DATA: Chemistry: White count 9.5, hemoglobin 14.5, hematocrit 45, platelets 168. Chemistry: Sodium 138, potassium 4.2, chloride 105, bicarbonate 28, BUN 20, creatinine 1.12, glucose 117. Troponin I of 0.18. D- dimer greater than 150. Chest x-ray was clear. EKG 88 beats per minute. Normal axis. No acute ST-T wave changes. CTA showed bilateral pulmonary emboli. Initial impression: He was placed on heparin drip and started on plan for either warfarin or eventual other oral anticoagulants. His diabetes was stable and he was placed on sliding scale of insulin. INVESTIGATIONS: On 06/06/16, venous Doppler study demonstrated DVT, right popliteal vein and right posterior tibial veins. On 06/07/16, abdomen and pelvis CT to rule out occult malignancies, mild hepatic steatosis and indeterminate cystic pancreatic lesions, nothing else was found. Initially, he was treated with IV heparin and warfarin. The dyspnea improved and did not recur during the hospital stay and he mobilized without any problems. On the day of discharge, he was feeling back to baseline. He had no symptoms in his right leg from his DVT and none from his PE. He has no exertional dyspnea. His oxygen saturation remained normal on room air. No chest pain or pressure. No cough or hemoptysis. He had a good appetite. PHYSICAL EXAMINATION ON DAY OF DISCHARGE: Temperature 98.2, pulse 72, respirations 20, blood pressure 123/63, oxygen saturation 91%, respiratory rate 20. Warm and well perfused. No cyanosis, anemia, jaundice, clubbing, or lymphadenopathy. He has central obesity. Respiratory system: Chest expansion full and symmetrical. Percussion note resonant. Breath sounds vesicular. No crackles or wheezes. Cardiovascular system: His pulse is regular. Venous pressure not elevated. Heart sounds are normal. No added sounds or murmur. No pedal edema. No tenderness over his right calf or popliteal fossa. Abdominal Examination: He is obese. No distention, masses, or organomegaly. ASSESSMENT AND PLAN: 1. Pulmonary emboli, deep venous thrombosis. We consulted the literature, which indicated that the use of Eliquis is adequate in somebody of his body mass index, hence we started him on 10 mg twice a day and discharged him home on this. He will follow up as an outpatient. 2. Essential hypertension, controlled. 3. 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 I note that he has some cystic lesions in his pancreas, which we will follow up as outpatient. 4. Obesity. Discussed again attempts to lose weight. 5. Type 2 diabetes. This is well controlled. DISCHARGE MEDICATIONS: 1. Eliquis 10 mg twice daily. 2. Vitamin B12 at 1000 mcg injection monthly. 3. Cabergoline 0.25 mg twice weekly. 4. Atenolol 25 mg daily. 5. Metformin 1000 mg twice daily. 6. Aspirin 81 mg will be stopped. An outpatient visit was arranged. [id number]/[facility] [place] #: [id number] [facility]
== END 2016-06-08 10:35 | disposition home or self-care (01) | DRG 176 ==
LOC: ED 21:08 → MEDTELE 06-06 03:53
PROVIDERS: ADMIT Internal Medicine; ATTEND Internal Medicine
DX: I26.99 Other pulmonary embolism without acute cor pulmonale (principal); E31.21 Multiple endocrine neoplasia [MEN] type I; I82.401 Acute embolism and thrombosis of unspecified deep veins of right lower extremity; Z68.42 Body mass index [BMI] 45.0-49.9, adult; E11.9 Type 2 diabetes mellitus without complications; D35.2 Benign neoplasm of pituitary gland; I10 Essential (primary) hypertension; E66.01 Morbid (severe) obesity due to excess calories; Z79.84 Long term (current) use of oral hypoglycemic drugs; Z79.82 Long term (current) use of aspirin; Z79.899 Other long term (current) drug therapy; Z88.0 Allergy status to penicillin; Z83.3 Family history of diabetes mellitus; Z86.39 Personal history of other endocrine, nutritional and metabolic disease; Z91.030 Bee allergy status
CPT/HCPCS: 36415; 71020; 71275; 74177; 80048; 80053; 82947; 83605; 84484; 84520; 85025; 85379; 85610; 85730; 93005; 93306; 93970; A9270-GY; J1644; Q9967

== ENCOUNTER 2017-01-26 08:21 | Day surgery (SDC) | payer MEDICARE, BC ==
[~2017-01-26 08:21] MED LIST: Acetaminophen TAB* 325 MG PO PRN; Buffered Lidocaine 0.9% SYRIN* 5 ML/SYR SYRINGE INTRADERM ONE
[2017-01-26] MEDS ORDERED: Midazolam* 1 MG/ML 2 ML VIAL (2 MG) ONE (10:25)
[2017-01-26 11:06] VITALS: BP 133/74
--- NOTE | 2017-01-26 12:24 | OP ---
DATE OF OPERATION: 01/26/2017. DATE OF : 1945. SURGEON: Vincent Villafuerte M.D. PREOPERATIVE DIAGNOSIS: Cataract left eye. POSTOPERATIVE DIAGNOSIS: Cataract left eye. OPERATIVE PROCEDURE: Phacoemulsification left eye with IOL. PROCEDURE: The patient was brought to the operating room after being given 1/2% Alcaine with epinep hrine drops in the preoperative area. The eye was prepped and draped in the usual sterile fashion. Sterile drape and eyelid speculum were placed. Again, topical 1/2% Alcaine with epinephrine was gi boo. A paracentesis incision was made at the 3 o'clock position with the No.75 blade. Clear cornea incision 2.2 x 2.2-mm was created at the 6 o'clock position starting at the anterior limbus using t he 2.2-mm keratome. The anterior chamber was irrigated with 0.4 mL of 1% non-preservative intracame ral lidocaine and filled with DisCoVisc. A capsulorrhexis was completed using the cystotome and the Utrata forceps. Hydrodissection was performed with balanced salt solution. The lens nucleus was re moved with the Phacoemulsification handpiece without incident. Cortex was removed with the irrigati on-aspiration handpiece. The capsular bag was re-inflated using DisCoVisc and an [id number] implant was inserted with the shooter. The irrigation-aspiration handpiece was used to remove all residual DisCoVisc. The eye was refilled with balanced salt solution and the wound checked and found to be w atertight. Topical Maxitrol drops were given. [id number]/[facility] #: [id number]
== END 2017-01-26 11:13 | disposition home or self-care (01) ==
LOC: OREAST 08:21
PROVIDERS: ATTEND Specialist
DX: H25.12 Age-related nuclear cataract, left eye (principal); H25.11 Age-related nuclear cataract, right eye; E11.3293 Type 2 diabetes mellitus with mild nonproliferative diabetic retinopathy without macular edema, bilateral
CPT/HCPCS: 36415; 86803; J2250; V2632

== ENCOUNTER → 2017-02-23 07:40 | Day surgery (SDC) | payer MEDICARE, BC ==
[~2017-02-23 07:40] MED LIST changes: +Buffered Lidocaine 0.9% SYRIN* 5 ML/SYR SYRINGE ONE; +Cyclopentolate 1% OPTH.SOL* 2 ML BTL ONE; +Ketorolac 0.5% OPHTH (NF) 0.5 % 5 ML BTL ONE; +Lidocaine 1% MPF* 2 ML VIAL ONE; +Lidocaine 2% EPI 1:200000 MPF* 20 ML VIAL ONE; +Midazolam* 1 MG/ML 2 ML VIAL (2 MG) ONE; +Neomycin/Polymy/Dex OPTH.SUSP* MAXITROL 0.1% 5 ML ONE; +Phenylephrine 2.5% OPTH.SOL* 2 ML BTL ONE; +Povidone Iodine 5% OPTH* 30 ML BTL ONE; +Proparacaine 0.5% OPHTH.SOL* 15 ML BTL ONE; +acetaZOLAMIDE TAB* 250 MG ONE
[2017-02-23 10:02] VITALS: BP 141/82
--- NOTE | 2017-02-23 10:04 | OP ---
DATE OF OPERATION: 02/23/2017. DATE OF : 1945. SURGEON: Vincent Villafuerte M.D. PREOPERATIVE DIAGNOSIS: Cataract right eye. POSTOPERATIVE DIAGNOSIS: Cataract right eye. OPERATIVE PROCEDURE: Phacoemulsification right eye with IOL. PROCEDURE: The patient was brought to the operating room after being given 1/2% Alcaine with epinep hrine drops in the preoperative area. The eye was prepped and draped in the usual sterile fashion. Sterile drape and eyelid speculum were placed. Again, topical 1/2% Alcaine with epinephrine was gi boo. A paracentesis incision was made at the 9 o'clock position with the No.75 blade. Clear cornea incision 2.2 x 2.2-mm was created at the 12 o'clock position starting at the anterior limbus using the 2.2-mm keratome. The anterior chamber was irrigated with 0.4 mL of 1% non-preservative intracam eral lidocaine and filled with DisCoVisc. A capsulorrhexis was completed using the cystotome and chadwick e Utrata forceps. Hydrodissection was performed with balanced salt solution. The lens nucleus was r emoved with the Phacoemulsification handpiece without incident. Cortex was removed with the irrigat ion-aspiration handpiece. The capsular bag was re-inflated using DisCoVisc and an [id number] implant was inserted with the shooter. The irrigation-aspiration handpiece was used to remove all residual DisCoVisc. The eye was refilled with balanced salt solution and the wound checked and found to be watertight. Topical Maxitrol drops were given. [id number]/[facility] #: [id number]
== END | disposition home or self-care (01) ==
LOC: OREAST 07:40
PROVIDERS: ATTEND Specialist
DX: H25.11 Age-related nuclear cataract, right eye (principal); E11.3293 Type 2 diabetes mellitus with mild nonproliferative diabetic retinopathy without macular edema, bilateral; I10 Essential (primary) hypertension; Z86.718 Personal history of other venous thrombosis and embolism; Z79.01 Long term (current) use of anticoagulants
CPT/HCPCS: A9270-GY; J2250; V2632

== ENCOUNTER 2019-07-03 16:33 | Observation (INO) | payer MEDICARE, BC ==
[2019-07-03] MEDS ORDERED: NS 0.9% 1000 ML** 1,000 ML IV ONE ×2 (16:50→18:39)
--- OUTSIDE RECORDS SUMMARY | 2019-07-03 17:43 | XMS REPORT | Continuity of Care Document ---
:1945 External Reference #:[id number] Author Name Hina Hamm MD (transmitted by agent of provider Je Chase) Address [address] [place] [address] Care Team Providers Name Role Phone Sundeep Chand MD - Endocrinology, Care Team Information [employer] Diabetes & Metabolism Problems Description No Information Available Social History Type Date Description Comments Sex Unknown ETOH Use Rarely consumes alcohol Tobacco Use Start: Unknown Patient has never smoked Recreational Drug Use Denies Drug Use Smoking Status Reviewed: 06/08/19 Patient has never smoked Exercise Type/Frequency Exercises regularly Allergies, Adverse Reactions, Alerts Active Allergies Reaction Severity Comments Date Penicillins 08/29/2013 Honey Bee Venom 10/04/2018 Chrome Gut Suture 10/04/2018 [place] 10/04/2018 Medications Active Medications SIG Qnty Indications Ordering Provider Date Metformin HCL take one tablet Unknown 1000mg by mouth twice a Tablets day Ramipril 1 by mouth every Unknown 10mg Capsules day Calcium + D3 2 by mouth every Unknown day [id number] Tablets Cabergoline take 0.25mg (1/2 Unknown 0.5mg Tablets tablet) by mouth twice weekly Immunizations Description No Information Available Vital Signs Date Vital Result Comment 06/08/2019 8:35am Height 67 inches 5'7" Weight 243.00 lb Heart Rate 82 /min BP Systolic 138 mmHg BP Diastolic 84 mmHg Pain Level 3 lower back, right leg sciatica BMI (Body Mass Index) 38.1 kg/m2 11/21/2018 10:41am Height 67 inches 5'7" Weight 244.00 lb BP Systolic Sitting 140 mmHg BP Diastolic Sitting 80 mmHg Pain Level 4 BMI (Body Mass Index) 38.2 kg/m2 Results Description No Information Available Procedures Description No Information Available Medical Devices Description No Information Available Encounters Type Date Location Provider Dx Diagnosis Office Visit 06/08/2019 [facility] M43.16 Spondylolisthesi 8:30a [facility] Hamm MD s, lumbar region M99.23 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 M51.16 Intervertebral disc disorders w radiculopathy, lumbar region Office 02/05/2019 [facility] M43.16 Spondylolisthesis, Visit 3:00p [facility] Hamm MD lumbar region M99.23 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 M51.16 Intervertebral disc disorders w radiculopathy, lumbar region Assessments Date Code Description Provider 06/08/2019 M43.16 Spondylolisthesis, lumbar region Hina Hamm MD 06/08/2019 M99.23 Spinal stenosis of lumbar region Hina Hamm MD 06/08/2019 M51.16 Intervertebral disc disorders with Hina Hamm MD radiculopathy, lumbar region 02/05/2019 M43.16 Spondylolisthesis, lumbar region Hina Hamm MD 02/05/2019 M99.23 Spinal stenosis of lumbar region Hina Hamm MD 02/05/2019 M51.16 Intervertebral disc disorders with Hina Hamm MD radiculopathy, lumbar region Plan of Treatment Future Appointment(s):07/20/2019 11:30 am - Hina Hamm MD [facility]06/08/2019 - Hina Hamm MDM43.16 Spondylolisthesis, lumbar regionNew Xrays:MRI Lumbar Spine W/O, Ordered: P Lumbar Ap//Lat 2-3 Views, Ordered: 06/08/19Follow up:RV in 1-2 months once imaging is completed.M99.23 Subluxation stenosis of neural canal of lumbar hlpmpoX40.16 Intervertebral disc disorders w radiculopathy, lumbar region Functional Status Description No Information Available Mental Status Description No Information Available Referrals Description No Information Available
[2019-07-03 18:03] LABS: ABS Lymphocytes 1.5 10^3/ul (1.0-4.8); ABS Monocytes 0.7 10^3/ul (0-0.8); ABS Neutrophils 5.7 10^3/ul (1.5-7.7); Eosinophil % 0.4 %; Hematocrit 40 % (42-52); Hemoglobin 13.7 g/dL (14.0-18.0); Lymphocyte % 18.9 %; Mean Corpuscular HGB Conc 34 g/dL (31-36); Mean Corpuscular Hemoglobin 31 pg (27-31); Mean Corpuscular Volume 89 fL (80-94); Mean Platelet Volume 8.5 fL (7.4-10.4); Platelet Count 205 10^3/uL (150-450); Red Blood Count 4.51 10^6 /uL (4.18-5.48); Red Cell Distribution Width 14 % (10-15)
[2019-07-03 18:22] LABS: ALT 17 U/L (7-52); AST 21 U/L (13-39); Albumin 4.1 g/dL (3.2-5.2); Albumin/Globulin Ratio 1.8 (1-3); Alkaline Phosphatase 54 U/L (34-104); Anion Gap 8 mmol/L (2-11); BUN/Creatinine Ratio 16.5 (8-20); Blood Urea Nitrogen 21 mg/dL (6-24); CO2 Carbon Dioxide 23 mmol/L (22-32); Calcium 10.2 mg/dL (8.6-10.3); Chloride 108 mmol/L (101-111); EGFR African American 67.5 (>60); EGFR Non-African American 55.7 (>60); Globulin 2.3 g/dL (2-4); Glucose 104 mg/dL (70-100); Magnesium 1.7 mg/dL (1.9-2.7); Potassium 4.7 mmol/L (3.5-5.0); Sodium 139 mmol/L (135-145); Total Protein 6.4 g/dL (6.4-8.9)
[2019-07-03 18:30] LABS: Troponin I 0.09 ng/mL (<0.03)
[2019-07-03] MEDS ORDERED: Magnesium Sulfate 1 GM IV* 1 GM/100 ML BAG IV ONE (18:38)
--- NOTE | 2019-07-03 19:07 | ED ---
HPI Cardiac - HPI Summary HPI Summary: Patient is a 74 y/o M w/ Hx of PE who presents to [facility] via EMS after an episode of SVT. Patient was given 6 mg adenosine by EMS which broke the patient out of SVT. Patient is currently sinus tachycardic on tester wafer substrate. He states that he was prepping dinner this evening when he experienced a heart pounding sensation. He felt faint as well and decided to call EMS. He notes Hx of PE and was on Eliquis until six months ago. CP, calf pain/swelling, vomiting , diarrhea, and cold Sx are denied. He denies Hx of IL and cardiac stents denied. Patient notes some coffee consumption this morning but nothing excessive. Hx of sciatic pain and parathyroid surgery reported. Home medications and allergies are reviewed. Home Medications Medication Instructions Recorded Confirmed Type Cabergoline 0.5 mg PO .TWICE A WEEK 11/13/18 07/03/19 History Calcium Carbonate/Vitamin D3 1 tab PO DAILY 11/13/18 07/03/19 History [Calcium 600 + Vit D Tablet] Naproxen Sodium [Aleve] 220 mg PO TID PRN 11/13/18 07/03/19 History Ramipril CAP* [Altace CAP*] 10 mg PO DAILY 11/13/18 07/03/19 History metFORMIN* [Glucophage 1000 MG TAB 1,000 mg PO BID WITH MEALS 11/13/18 07/03/19 History *] Cyanocobalamin INJ * [Vitamin B12 1,000 mcg IM MONTHLY 07/03/19 07/03/19 History INJ *] - History of Current Complaint Chief Complaint: EDDysrhythmPalp Stated Complaint: CHEST PAIN Time Seen by Provider: 07/03/19 16:40 Hx Obtained From: Patient Onset/Duration: Resolved Timing: Intermittent Current Severity: None Pain Intensity: 0 Pain Scale Used: 0-10 Numeric Character: Pounding Associated Signs and Symptoms: Positive: Palpitations, Other: - negative - diarrhea, cold Sx; positive - faint. Negative: Chest Pain, Calf Pain/Swelling, Vomiting - Allergy/Home Medications Allergies/Adverse Reactions: Allergies Allergy/AdvReac Type Severity Reaction Status Date / Time bee pollen Allergy Dizziness Verified 06/12/19 11:04 karly Allergy Rash Verified 06/12/19 11:04 Penicillins Allergy Rash Verified 06/12/19 11:04 chromic gut sutures Allergy Intermediate local Uncoded 06/12/19 11:04 inflammation at dental site Home Medications: Home Medications Cabergoline 0.5 mg PO .TWICE A WEEK 11/13/18 [History Confirmed 07/03/19] Calcium Carbonate/Vitamin D3 [Calcium 600 + Vit D Tablet] 1 tab PO DAILY [History Confirmed 07/03/19] Naproxen Sodium [Aleve] 220 mg PO TID PRN 11/13/18 [History Confirmed 07/03/19] Ramipril CAP* [Altace CAP*] 10 mg PO DAILY 11/13/18 [History Confirmed 07/03/19] metFORMIN* [Glucophage 1000 MG TAB *] 1,000 mg PO BID WITH MEALS 11/13/18 [ History Confirmed 07/03/19] Cyanocobalamin INJ * [Vitamin B12 INJ *] 1,000 mcg IM MONTHLY 07/03/19 [History Confirmed 07/03/19] PMH/Surg Hx/FS Hx/Imm Hx Endocrine/Hematology History: Reports: Hx Diabetes - TYPE II- ON ORAL MEDICATION FOR Denies: Hx Anemia Cardiovascular History: Reports: Hx Hypertension - TAKES MEDICATION, Other Cardiovascular Problems/Disorders - DVT-07/2015 Denies: Hx Pacemaker/ICD Respiratory History: Reports: Hx Pulmonary Embolism - 07/2015 Denies: Hx Asthma GI History: Reports: Other GI Disorders - multiple endocrine neoplasia type 1, hyperparathyroidism,Prolactinoma Denies: Hx Jaundice History: Denies: Hx Dialysis, Hx Renal Disease Musculoskeletal History: Reports: Hx Arthritis - lower back, Hx Back Problems, Hx Scoliosis Sensory History: Reports: Hx Cataracts - BILATERAL, Hx Contacts or Glasses Denies: Hx Hearing Aid Opthamlomology History: Reports: Hx Cataracts - BILATERAL, Hx Contacts or Glasses Psychiatric History: Denies: Hx Panic Disorder - Cancer History Cancer Type, Location and Year: MEN1-PARATHYROID AND PITUITARY BENIGN TUMORS Hx Chemotherapy: No Hx Radiation Therapy: No - Surgical History Surgery Procedure, Year, and Place: PARATHYROID TUMOR SURGERY-2008. CATARACT LEFT EYE -2017. RIGHT HAND SURGERY-NO METAL Hx Anesthesia Reactions: No - Immunization History Date of Tetanus Vaccine: utd Date of Influenza Vaccine: utd Infectious Disease History: No Infectious Disease History: Denies: Traveled Outside the [place] in Last 30 Days - Family History Known Family History: Positive: Diabetes Negative: Hypertension - Social History Alcohol Use: Weekly Alcohol Amount: 1-2 Substance Use Type: Reports: None Smoking Status (MU): Never Smoked Tobacco Review of Systems Positive: Other - feeling faint ENT: Other - negative - cold Sx Positive: Palpitations. Negative: Chest Pain Negative: Vomiting, Diarrhea Negative: Myalgia - calves , Edema - calves All Other Systems Reviewed And Are Negative: Yes Physical Exam - Summary Physical Exam Summary: Constitutional: Well-developed, Well-nourished, Alert. (-) Distressed Skin: Warm, Dry HENT: Normocephalic; Atraumatic Eyes: Conjunctiva normal Neck: Musculoskeletal ROM normal neck. (-) JVD, (-) Stridor, (-) Tracheal deviation Cardio: Rhythm regular, tachycardic, Heart sounds normal; Intact distal pulses; The pedal pulses are 2+ and symmetric. Radial pulses are 2+ and symmetric. (-) Murmur Pulmonary/Chest wall: Effort normal. (-) Respiratory distress, (-) Wheezes, (-) Rales Abd: Soft, (-) tenderness, (-) Distension, (-) Guarding, (-) Rebound Musculoskeletal: (-) Edema Lymph: (-) Cervical adenopathy Neuro: Alert, Oriented x3 Psych: Mood and affect Normal Triage Information Reviewed: Yes Vital Signs On Initial Exam: Initial Vitals Temp Pulse Resp BP Pulse Ox 97.6 F 114 20 150/90 99 07/03/19 16:40 07/03/19 16:40 07/03/19 16:40 07/03/19 16:40 07/03/19 16:40 Vital Signs Reviewed: Yes Procedures - Sedation Patient Received Moderate/Deep Sedation with Procedure: No Diagnostics - Vital Signs Vital Signs Temp Pulse Resp BP Pulse Ox 07/03/19 18:00 108 16 98 07/03/19 17:41 106 14 130/86 97 07/03/19 17:25 114 20 139/103 97 07/03/19 17:00 110 29 98 07/03/19 16:42 116 21 98 07/03/19 16:41 116 17 150/90 98 07/03/19 16:40 97.6 F 114 20 150/90 99 - Laboratory Lab Results: Lab Results 07/03/19 07/03/19 Range/Units 17:58 17:58 WBC 8.0 (3.5-10.8) 10^3/uL RBC 4.51 (4.18-5.48) 10^6 /uL Hgb 13.7 L (14.0-18.0) g/dL Hct 40 L (42-52) % MCV 89 (80-94) fL MCH 31 (27-31) pg MCHC 34 (31-36) g/dL RDW 14 (10-15) % Plt Count 205 (150-450) 10^3/uL MPV 8.5 (7.4-10.4) fL Neut % (Auto) 71.6 % Lymph % (Auto) 18.9 % Dunn % (Auto) 8.9 % Eos % (Auto) 0.4 % Baso % (Auto) 0.2 % Absolute Neuts (auto) 5.7 (1.5-7.7) 10^3/ul Absolute Lymphs (auto) 1.5 (1.0-4.8) 10^3/ul Absolute Monos (auto) 0.7 (0-0.8) 10^3/ul Absolute Eos (auto) 0.0 (0-0.6) 10^3/ul Absolute Basos (auto) 0.0 (0-0.2) 10^3/ul Absolute Nucleated RBC 0.0 10^3/ul Nucleated RBC % 0.0 Sodium 139 (135-145) mmol/L Potassium 4.7 (3.5-5.0) mmol/L Chloride 108 (101-111) mmol/L Carbon Dioxide 23 (22-32) mmol/L Anion Gap 8 (2-11) mmol/L BUN 21 (6-24) mg/dL Creatinine 1.27 H (0.67-1.17) mg/dL Est GFR ( Amer) 67.5 (>60) Est GFR (Non-Af Amer) 55.7 (>60) BUN/Creatinine Ratio 16.5 (8-20) Glucose 104 H (70-100) mg/dL Calcium 10.2 (8.6-10.3) mg/dL Magnesium 1.7 L (1.9-2.7) mg/dL Total Bilirubin 0.70 (0.2-1.0) mg/dL AST 21 (13-39) U/L ALT 17 (7-52) U/L Alkaline Phosphatase 54 (34-104) U/L Troponin I 0.09 H* (<0.03) ng/mL Total Protein 6.4 (6.4-8.9) g/dL Albumin 4.1 (3.2-5.2) g/dL Globulin 2.3 (2-4) g/dL Albumin/Globulin Ratio 1.8 (1-3) TSH Pending Result Diagrams: 07/03/19 17:58 07/03/19 17:58 Lab Statement: Any lab studies that have been ordered have been reviewed, and results considered in the medical decision making process. - Radiology CXR Radiology Interpretation Completed By: ED Physician Summary of Radiographic Findings: No acute process, pending official report. - EKG 1658 Cardiac Rate: Tachycardia - rate of 108 BPM EKG Rhythm: Sinus Rhythm Summary of EKG Findings: EKG showed sinus tachycardia with rate of 108 BPM, no ischemic changes. ED physician has reviewed and interpreted this EKG. Disposition - Course Course Of Treatment: Patient is a 74 y/o M w/ Hx of PE who presents to [facility] via EMS after an episode of SVT. Patient was given 6 mg adenosine by EMS which broke the patient out of SVT. Patient is currently sinus tachycardic on tester wafer substrate. He states that he was prepping dinner this evening when he experienced a heart pounding sensation. He felt faint as well and decided to call EMS. He notes Hx of PE and was on Eliquis until six months ago. CP, calf pain/swelling, vomiting, diarrhea, and cold Sx are denied. He denies Hx of IL and cardiac stents denied. Patient notes some coffee consumption this morning but nothing excessive. Hx of sciatic pain and parathyroid surgery reported. On physical exam , patient is noted to be tachycardic with regular rhythm. CXR showed no acute process. EKG showed sinus tachycardia with rate of 108 BPM, no ischemic changes. Bloodwork was obtained. Trop was 0.09. Other abnormal values include Hgb 13.7, Hct 40, creatinine 1.27, glucose 104, magnesium 1.7. During ED course , patient received fluids and magnesium sulfate 1 gm in 100 mls @ 200 mls/hr IV. Patients case was discussed with Dr. Son, Dr. Son will assess the patient after second trop. Patient is signed out to Dr. Gould at 1900 07/03/19 shift change pending second trop, d-dimer and hospitalist evaluation. - Diagnoses Provider Diagnoses: SVT (supraventricular tachycardia), Elevated troponin - Physician Notifications Discussed Care Of Patient With: Tena Son Time Discussed With Above Provider: 18:51 Instructed by Provider To: Other - Patients case was discussed with Dr. Son, Dr. Son will assess the patient after second trop. Discharge ED - Sign-Out/Discharge Documenting (check all that apply): Sign-Out Patient Signing out patient TO: Aurora Gould - Discharge Plan Condition: Stable Referrals: Sundeep Chand MD [Primary Care Provider] - - Billing Disposition and Condition Condition: STABLE - Attestation Statements Document Initiated by Gabrieleibbritney: Yes Documenting Scribe: DONNELL DUCKWORTH Provider For Whom Jacquie is Documenting (Include Credential): ROLDAN TOSCANO DO Scribe Attestation: DONNELL Royal scribed for ROLDAN TOSCANO DO on 07/03/19 at 1929. Scribe Documentation Reviewed: Yes Provider Attestation: The documentation as recorded by the gabrieleibDONNELL tan accurately reflects the service I personally performed and the decisions made by me, ROLDAN TOSCANO DO Status of Scribe Document: Viewed
[2019-07-03 19:17] LABS: TSH (Thyroid Stimulating Horm) 2.25 mcIU/mL (0.34-5.60)
--- NOTE | 2019-07-03 19:19 | ED ---
Progress - Progress Note Progress Note: Pt is a signout from Dr. Tenorio at 1900 on 07/03/19 pending repeat troponin, D- dimer, and evaluation by hospitalist. Re-Evaluation - Re-Evaluation 1st re-eval Re-Evaluation Time: 19:30 Change: Unchanged Comment: Pt's troponin increased to 0.11. Pt to be seen by hospitalist Sharif Robertson NP. Course/Dx - Diagnoses Provider Diagnoses: SVT (supraventricular tachycardia), Elevated troponin Discharge ED - Sign-Out/Discharge Documenting (check all that apply): Patient Departure, Receiving Sign-Out Receiving patient FROM: Morris Tenorio - Discharge Plan Condition: Stable Disposition: ADMITTED TO [facility] - Billing Disposition and Condition Condition: STABLE Disposition: Admitted to [facility] - Attestation Statements Document Initiated by Gabrieleibe: Yes Documenting Scribe: Tabatha Toney Provider For Whom Randi is Documenting (Include Credential): Aurora Gould MD. Scribe Attestation: ITabatha, scribed for Aurora Gould MD. on 07/03/19 at 6009. Scribe Documentation Reviewed: Yes Provider Attestation: The documentation as recorded by the scribeTabatha accurately reflects the service I personally performed and the decisions made by , Aurora Gould MD. Status of Scribe Document: Viewed
[2019-07-03 19:59] LABS: Troponin I 0.11 ng/mL (<0.03)
[2019-07-03] MEDS ORDERED: Dextrose 50% Syringe 50 ML* 25 GM/50 ML SYRINGE IV PUSH PRN (20:34)
[2019-07-03] MEDS ORDERED: Acetaminophen TAB* 325 MG PO PRN (20:34)
[2019-07-03] MEDS ORDERED: Ondansetron INJ* 2 MG/ML VIAL IV PRN (20:34)
[2019-07-03] MEDS ORDERED: Aspirin 81 mg CHEW TAB* 81 MG TAB.CHEW PO ONE (20:34)
[2019-07-03] MEDS ORDERED: Iodixanol* (CONTRAST) 320 MG/ML 100 ML SDV IV ONE (20:49)
[2019-07-03 21:21] LABS: Free T4 1.08 ng/dL (0.61-1.12)
[2019-07-03 21:53] LABS: INR 0.97 (0.82-1.09)
[2019-07-03] MEDS ORDERED: Heparin VIAL(*) 5000 UNITS/ML VIAL (FIVE THOUSAND) SUBCUT SCH (22:00)
--- NOTE | 2019-07-03 22:16 | HP ---
CC: Dr. Chand; Dr. Encarnacion * HISTORY AND PHYSICAL: DATE OF ADMISSION: 07/03/19 PRIMARY CARE PROVIDER: Dr. Chnad. MY ATTENDING PHYSICIAN WHILE IN THE HOSPITAL: Dr. Tom * (report dictated by Susan Robertson NP). CONSULTING PRODUCTION WORKER: Dr. Encarnacion. CHIEF COMPLAINT: Palpitations. HISTORY OF PRESENT ILLNESS: Mr. Rushing is a 74-year-old male patient, he carries a history of diabetes type 2, not on insulin; history of a prolactinoma ; MEN1 syndrome; PE in the past; hypertension, who about 6 months ago was stopped on his Eliquis, he had a PE of unclear etiology and he has been doing well. Today, he was cutting some vegetables at the countertop, he started noticing that his heart was racing, he felt palpitations, he felt faint, did not have chest pain, did not have tightness or pressure. He did not have any shortness of breath. He was concerned, he grabbed his blood pressure cuff, his blood pressure was noted to be in the 160/100 range. He was noted that his heart rate was between 170 and 180. He checked it 3 times, it was not getting better, he summoned EMS. EMS came. He notes that the symptoms started around 10 after 3. He was in the ambulance and in the ambulance, they gave him adenosine and he converted. He thinks that he was in the episode for about 45 minutes total. When he came into the ER, it was noted that he had sinus tachycardia. He denied again any chest pressure or heaviness. He says that he has not been sick recently, no vomiting, no diarrhea, no recent changes in medications. He has not been using any [id number] cough medicines. He has not had any URI symptoms. No fevers or chills. He came into the ED because of the SVT. Troponin was checked. The troponin was noted to be 0.09, repeat troponin was 0.11 and because of the elevation, we were asked to evaluate for admission. PAST MEDICAL HISTORY: Significant for: 1. Diabetes type 2, non-insulin dependent. 2. Prolactinoma. 3. MEN1 syndrome. 4. PE. 5. Hypertension. PAST SURGICAL HISTORY: 1. He has had parathyroidectomy x2. 2. Hand surgery. 3. Oral surgery. MEDICATIONS: Home meds according to his pill bottle include: 1. Metformin 1000 mg p.o. b.i.d. with meals. 2. Calcium with vitamin D 1 tablet daily. 3. Altace 10 mg p.o. daily. 4. Naproxen 220 mg p.o. t.i.d. as needed. 5. Cabergoline 0.5 mg p.o. twice weekly. 6. Vitamin B12, he actually takes the sublingual formulation daily. ALLERGIES TO MEDICATIONS: Include PENICILLIN. FAMILY HISTORY: His mother had MEN type 1. Father has history of diabetes. SOCIAL HISTORY: He does not smoke. He does not drink. Surrogate decision maker is his . REVIEW OF SYSTEMS: There is no documented fever. He denied having any significant weight change. There is no ear discharge. He denied having any rhinorrhea. There is no sore throat, no thyroid enlargement. Denies having any chest pain. There is no orthopnea, no nocturnal dyspnea. There is no abdominal pain, no nausea, no vomiting, no dysuria, no frequency, no seizure, no loss of consciousness, no pruritus and no skin ulceration. Review of 14 systems completed, all others negative. PHYSICAL EXAMINATION GENERAL: At this time, Mr. Rushing is a 74-year-old male patient, appears to be well nourished and well developed, does not appear to be in any acute distress. VITAL SIGNS: Blood pressure now 119/82, pulse 81, respirations 20, O2 saturation 98%, temperature was 97.6. When he presented, his blood pressure was 150/90, his heart rate was 116. EMS report showed that he had a heart rate of 174. HEENT: Head: Atraumatic and normocephalic. Eyes: EOMs are intact. Sclerae anicteric and not pale. Throat: Oral mucosa appears to be moist. No oropharyngeal erythema. NECK: Supple. LUNGS: Clear to auscultation bilaterally. No wheezes, rales, or rhonchi. HEART: Sounds S1, S2. He is regular rate and rhythm. No murmurs, rubs, or gallops. ABDOMEN: Soft, flat, nontender. Bowel sounds are present. EXTREMITIES: Pulses were 2+ throughout. He is moving all 4 extremities with 5/ 5 strength. NEUROLOGICAL: He is awake. He is alert. He is oriented x3. His tongue is midline. Bingo Clerk are equal. He had no gross focal deficits. SKIN: Grossly intact. DIAGNOSTIC STUDIES/LAB DATA: WBC 8.0, RBC of 4.51, hemoglobin 13.7, hematocrit of 40, platelet count of 205. The D-dimer was 221. His sodium 139, potassium 4.7, chloride 108, bicarb 23, BUN 21, creatinine 1.27, glucose 104, calcium 10.2, mag 1.7. Total bili 0.7, AST 21, ALT 17, alk phos 54. Troponin 0.09, repeat troponin 0.01. When we looked back previously when he had his PE, his troponins were 0.09 and 0.18. His TSH was 2.25, albumin 4.1. He had a chest x-ray obtained today. Under my review, I did not appreciate any acute infiltrates or pneumonia or any pulmonary edema. He had an EKG obtained, which shows a sinus tachycardia, rate of 108, no ST elevation or T-wave inversion noted at this point. Old medical records were reviewed. ASSESSMENT AND PLAN: Mr. Rushing is a 74-year-old male patient coming into the ED today with complaints of palpitations, found to have supraventricular tachycardia that broke with adenosine. He is now found to have increase in troponin. He will be admitted under observation status for: 1. Supraventricular tachycardia. Again, etiology of why this happens is unclear. I will check a free T4. His mag was slightly low. We will replace this. I did touch base with Cardiology, they will evaluate tomorrow. We will get an echocardiogram and we will continue to monitor. They do not recommend any medication at this point. 2. Elevated troponins, this is probably demand ischemia from the supraventricular tachycardia; however, that being said, he does have a history of pulmonary embolism, he has been off Eliquis now for 6 months. D-dimer was slightly elevated off his baseline, so I am going to get a CTA to make sure that this was not a culprit. If the next troponin does increase, I would certainly start a heparin drip, I am not doing it now because he is symptom- free. He has not had any chest pain whatsoever. No pressure. No heaviness or tightness. I will give him aspirin. If it increases, I have a low threshold to certainly start heparin. If the CTA is positive for pulmonary embolism, I certainly will start heparin and we are also getting an echocardiogram. I discussed this with Cardiology, they will evaluate tomorrow. 3. Diabetes. We will place him on a lispro sliding scale. 4. 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 We will continue his meds as prescribed. 5. Hypertension. Continue his ramipril. 6. History of pulmonary embolism. He will be placed on DVT prophylaxis. 7. DVT prevention: He is high risk. He will be placed on heparin subcu. 8. Code status: Full code. 9. Fluids, electrolytes, and nutrition: He can have a consistent carb diet and we are replacing his magnesium. TIME SPENT: Time spent on the admission was 60 minutes, greater than half time spent [id number] with the patient, obtaining my history and physical and the other half time was spent going over the plan of care with the patient and implementing the plan of care. I did discuss the plan of care with my attending, Dr. Tom, she is in agreement. SUSAN ROBERTSON, SATURNINO [id number]/CPS #: [id number] LEONEL
[2019-07-03] MEDS ORDERED: Enoxaparin(*) 100 MG/ML SYR SUBCUT ONE (22:38)
[2019-07-04 00:54] LABS: Troponin I 0.13 ng/mL (<0.03)
[2019-07-04 04:01] LABS: ABS Eosinophils 0.1 10^3/ul (0-0.6); ABS Lymphocytes 2.3 10^3/ul (1.0-4.8); ABS Monocytes 0.6 10^3/ul (0-0.8); ABS Neutrophils 3.3 10^3/ul (1.5-7.7); Eosinophil % 1.8 %; Hematocrit 37 % (42-52); Hemoglobin 12.7 g/dL (14.0-18.0); Lymphocyte % 36.7 %; Mean Corpuscular HGB Conc 34 g/dL (31-36); Mean Corpuscular Hemoglobin 30 pg (27-31); Mean Corpuscular Volume 89 fL (80-94); Mean Platelet Volume 8.3 fL (7.4-10.4); Platelet Count 193 10^3/uL (150-450); Red Blood Count 4.21 10^6 /uL (4.18-5.48); Red Cell Distribution Width 14 % (10-15); White Blood Count 6.3 10^3/uL (3.5-10.8)
[2019-07-04 04:17] LABS: BUN/Creatinine Ratio 17.3 (8-20); Calcium 9.5 mg/dL (8.6-10.3); EGFR African American 79.6 (>60); EGFR Non-African American 65.8 (>60); Magnesium 1.8 mg/dL (1.9-2.7)
[2019-07-04] MEDS ORDERED: Magnesium Sulfate 2 GM IV* 2 GM/50 ML BAG IVPB ONE (04:28)
--- NOTE | 2019-07-04 08:14 | PN ---
Subjective - Subjective Reason for Note: Discharge Note History: DISCHARGE SUMMARY: Mr. Rushing had an episode of supraventricular tachycardia with a rapid ventricular rate that was terminated by adenoine by the EMS crew. He has remained in sinus rhythm. He had no chest pain, dyspnea. He was slightly light headed. He has no recent intercurrent illness and had not drunk any alcohol for 2 days. He has remained in sinus rhythm overnight. He has no chest pain, dyspnea, palpitations, sweats. 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) E66.01 Prolactinoma (Chronic) D35.2 Type 2 diabetes mellitus, controlled (Chronic) E11.9 Current Medications: Current Medications Acetaminophen (Tylenol Tab*) 650 mg PO Q4H PRN PRN Reason: PAIN - MILD Aspirin (Aspirin 81 Mg Chew Tab*) 81 mg PO DAILY [facility] Dextrose (D50w Syringe 50 Ml*) 12.5 gm IV PUSH .FOR FS < 60 - SS PRN PRN Reason: FS < 60 Insulin Human Lispro (Humalog*) 0 units SUBCUT AC [facility]; Protocol Pto: (Cabergoline [ (Cabergoline] 0.5 Mg)) 0.5 mg PO SuWe [facility] Ondansetron HCl (Zofran Inj*) 4 mg IV Q6H PRN PRN Reason: NAUSEA Ramipril (Altace Cap*) 10 mg PO DAILY [facility] - Review of Systems Constitutional Symptoms: No: Fever, Night Sweats Pulmonary: Negative: Cough, Sputum, Respiratory Distress, Shortness of Breath Cardiology: Positive: Palpitations - yesterday with SVT, Swelling of Ankles Negative: Chest Pain, Shortness of Breath, Peripheral Vascular Dis, Syncope Gastroenterology: Negative: Abdominal Pain, Nausea, Vomiting, Anorexia, Change in Bowel Habits Genital - Urinary: Negative: Dysuria, Polyuria Home Medications: Home Medications Medication Instructions Recorded Confirmed Type Cabergoline 0.5 mg PO .TWICE A WEEK 11/13/18 07/03/19 History Calcium Carbonate/Vitamin D3 1 tab PO DAILY 11/13/18 07/03/19 History [Calcium 600 + Vit D Tablet] Naproxen Sodium [Aleve] 220 mg PO TID PRN 11/13/18 07/03/19 History Ramipril CAP* [Altace CAP*] 10 mg PO DAILY 11/13/18 07/03/19 History metFORMIN* [Glucophage 1000 MG TAB 1,000 mg PO BID WITH MEALS 11/13/18 07/03/19 History *] Cyanocobalamin (Vitamin B-12) 1,000 mcg SL DAILY 07/03/19 07/03/19 History [Vitamin B-12] Allergies: Allergies Allergy/AdvReac Type Severity Reaction Status Date / Time bee pollen Allergy Dizziness Verified 06/12/19 11:04 karly Allergy Rash Verified 06/12/19 11:04 Penicillins Allergy Rash Verified 06/12/19 11:04 chromic gut sutures Allergy Intermediate local Uncoded 06/12/19 11:04 inflammation at dental site Objective - Vital Signs Vital Signs: Vital Signs 07/03/19 07/03/19 07/03/19 16:40 16:41 16:42 Temperature 97.6 F Pulse Rate 114 116 116 Respiratory 20 17 21 Rate Blood Pressure 150/90 150/90 (mmHg) O2 Sat by Pulse 99 98 98 Oximetry 07/03/19 07/03/19 07/03/19 17:00 17:25 17:41 Temperature Pulse Rate 110 114 106 Respiratory 29 20 14 Rate Blood Pressure 139/103 130/86 (mmHg) O2 Sat by Pulse 98 97 97 Oximetry 07/03/19 07/03/19 07/03/19 18:00 18:11 18:41 Temperature Pulse Rate 108 102 94 Respiratory 16 18 18 Rate Blood Pressure 123/82 115/75 (mmHg) O2 Sat by Pulse 98 97 96 Oximetry 07/03/19 07/03/19 07/03/19 19:00 19:11 19:41 Temperature Pulse Rate 90 89 81 Respiratory 16 21 20 Rate Blood Pressure 127/78 119/82 (mmHg) O2 Sat by Pulse 99 100 98 Oximetry 07/03/19 07/03/19 07/03/19 20:00 20:10 20:41 Temperature Pulse Rate 79 77 88 Respiratory 18 18 21 Rate Blood Pressure 122/83 138/83 (mmHg) O2 Sat by Pulse 98 98 98 Oximetry 07/03/19 07/03/19 07/03/19 21:00 21:11 22:38 Temperature 98.6 F Pulse Rate 88 84 85 Respiratory 21 18 18 Rate Blood Pressure 120/82 120/82 (mmHg) O2 Sat by Pulse 99 97 97 Oximetry 07/03/19 07/04/19 23:01 02:55 Temperature 97.1 F 97.7 F Pulse Rate 84 77 Respiratory 16 16 Rate Blood Pressure 118/91 118/68 (mmHg) O2 Sat by Pulse 100 98 Oximetry - Intake and Output Intake and Output: Intake & Output 07/01/19 07/02/19 07/03/19 07/04/19 11:59 11:59 11:59 11:59 Intake Total 2049 Balance 2049 Weight 254 lb 14.4 oz Intake: IV Fluids 2000 IVPB 50 Oral 0 ADLs: Meal Record Start: 07/03/19 23: 03 Freq: DAILY@0900,1400,1800 Status: Active Protocol: Created 07/03/19 23:03 System (Rec: 07/03/19 23:03 System [id number]) Intake and Output Start: 07/03/19 16: 42 Freq: Status: Active Protocol: Created 07/03/19 16:42 System (Rec: 07/03/19 16:42 System [id number]) Intake and Output Start: 07/03/19 23: 03 Freq: DAILY@0600,1400,2200 Status: Active Protocol: Created 07/03/19 23:03 System (Rec: 07/03/19 23:03 System [id number]) Document 07/04/19 05:23 [id number] (Rec: 07/04/19 05:24 [id number]) - Physical Exam General Physical Exam Comment: warm and well perfused, sitting comfortably in a chair without any distress. General: No Cyanosis Lungs and Chest: Yes: Chest Expansion Full, Chest Expansion Symetrica, Percussion Note Resonant, Vessicular Breath Sounds. No: Crackles, Wheezes, Respiratory Distress, Use of Accessory Muscles Heart Rate and Rhythm: Regular JVP: Not Elevated Additional Cardiovascular: Yes: Normal Heart Sounds, Pedal Edema - trace. No: Heart Murmur Abdominal Exam: Yes: Soft, Bowel Sounds Present. No: Distention, Abdominal Tenderness - Extremities Cranial Nerves II-XII Intact: Yes Limbs: Normal Power, Normal Tone, Normal Coordination - Neuro Orientation: A/O x3 Psychiatric: Normal Speech: Normal Results - Results Lab Results: Laboratory Results - last 24 hr 07/03/19 07/03/19 07/03/19 17:58 17:58 19:30 WBC 8.0 RBC 4.51 Hgb 13.7 L Hct 40 L MCV 89 MCH 31 MCHC 34 RDW 14 Plt Count 205 MPV 8.5 Neut % (Auto) 71.6 Lymph % (Auto) 18.9 Saunders % (Auto) 8.9 Eos % (Auto) 0.4 Baso % (Auto) 0.2 Absolute Neuts (auto) 5.7 Absolute Lymphs (auto) 1.5 Absolute Monos (auto) 0.7 Absolute Eos (auto) 0.0 Absolute Basos (auto) 0.0 Absolute Nucleated RBC 0.0 Nucleated RBC % 0.0 INR (Anticoag Therapy) 0.97 APTT 31.0 D-Dimer, Quantitative 221 Sodium 139 Potassium 4.7 Chloride 108 Carbon Dioxide 23 Anion Gap 8 BUN 21 Creatinine 1.27 H Est GFR ( Amer) 67.5 Est GFR (Non-Af Amer) 55.7 BUN/Creatinine Ratio 16.5 Glucose 104 H Calcium 10.2 Magnesium 1.7 L Total Bilirubin 0.70 AST 21 ALT 17 Alkaline Phosphatase 54 Troponin I 0.09 H* Total Protein 6.4 Albumin 4.1 Globulin 2.3 Albumin/Globulin Ratio 1.8 TSH 2.25 Free T4 1.08 07/03/19 07/04/19 07/04/19 19:30 00:10 03:54 WBC RBC Hgb Hct MCV MCH MCHC RDW Plt Count MPV Neut % (Auto) Lymph % (Auto) Saunders % (Auto) Eos % (Auto) Baso % (Auto) Absolute Neuts (auto) Absolute Lymphs (auto) Absolute Monos (auto) Absolute Eos (auto) Absolute Basos (auto) Absolute Nucleated RBC Nucleated RBC % INR (Anticoag Therapy) APTT D-Dimer, Quantitative Sodium Potassium Chloride Carbon Dioxide Anion Gap BUN Creatinine Est GFR ( Amer) Est GFR (Non-Af Amer) BUN/Creatinine Ratio Glucose Calcium Magnesium Total Bilirubin AST ALT Alkaline Phosphatase Troponin I 0.11 H* 0.13 H* 0.10 H* Total Protein Albumin Globulin Albumin/Globulin Ratio TSH Free T4 07/04/19 07/04/19 03:54 03:54 WBC 6.3 RBC 4.21 Hgb 12.7 L Hct 37 L MCV 89 MCH 30 MCHC 34 RDW 14 Plt Count 193 MPV 8.3 Neut % (Auto) 51.6 Lymph % (Auto) 36.7 Saunders % (Auto) 9.3 Eos % (Auto) 1.8 Baso % (Auto) 0.6 Absolute Neuts (auto) 3.3 Absolute Lymphs (auto) 2.3 Absolute Monos (auto) 0.6 Absolute Eos (auto) 0.1 Absolute Basos (auto) 0.0 Absolute Nucleated RBC 0.0 Nucleated RBC % 0.0 INR (Anticoag Therapy) APTT D-Dimer, Quantitative Sodium 138 Potassium 4.0 Chloride 108 Carbon Dioxide 26 Anion Gap 4 BUN 19 Creatinine 1.10 Est GFR ( Amer) 79.6 Est GFR (Non-Af Amer) 65.8 BUN/Creatinine Ratio 17.3 Glucose 127 H Calcium 9.5 Magnesium 1.8 L Total Bilirubin AST ALT Alkaline Phosphatase Troponin I Total Protein Albumin Globulin Albumin/Globulin Ratio TSH Free T4 Radiology Results: Patient Name: EVA RUSHING JR Medical Record#: [id number] Ordering Physician: Walter Tenorio DO Acct.#: [id number] : 1945 Age: 74 Sex: M Location: [address] [place] [address] MEDICAL/TELEMETRY Exam Date: 07/03/191703 ADM Status: ADM Aster Order Information: CHEST AP/PORT Accession Number: [id number] CPT: 49752 INDICATION: Chest pain, supraventricular tachycardia. COMPARISON: Comparison is made with a prior chest x-ray study from June 05, 2016. TECHNIQUE: A portable view of the chest was obtained. FINDINGS: Cardiac and mediastinal contours appear to be within normal limits. The lungs are underinflated with more focal elevation of the left hemidiaphragm which appears unchanged. The lungs are grossly clear. No pleural effusion is seen. IMPRESSION: NO EVIDENCE FOR ACTIVE CARDIOPULMONARY DISEASE. R1NF Preliminary Imaging Read R1NF <Electronically signed by Silverio Frazier MD in OV> 07/04/1959 Dictated By: Silverio Frazier MD Dictated Date/Time: 07/04/19657 Transcribed Date/Time: 07/04/19657 Copy to: EKG Report: 07/03/19 16:58 sinus tachycardia rate 108 NC 173 QTc 449 QRS - 3. No ST-T changes. 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 There appear to be no precipitating factors. His D-Dimer was slightly elevated, so we are ruling out a pulmonary embolism given his history. A cardiology consultation was requested. His troponin levels are coming down - this is likely demand ischemia. He will require a cardiac stress test - but this may not be necessary during this hospitalization and I will defer this to cardiology. In addition, cardiology can determine if we need to restart him on an anticoagulant. I note that this is likely to be due to a re-entrant pathway, so we will need to decide whether he should have an cardiac electrophysiology work up and an ablation. Comorbidities: Essential hypertension (Chronic) This is well controlled Type 2 diabetes mellitus, controlled (Chronic) Secondary diagnoses: History of hyperparathyroidism (Chronic) History of pulmonary embolism (Chronic) 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) Obesity, Class III, BMI 40-49.9 (morbid obesity) (Chronic) Prolactinoma (Chronic) I discussed the above with Mr. Rushing and he agrees with the management plan. I will discharge him today if cardiology agrees. Condition: good Disposition: home
[2019-07-04] MEDS ORDERED: CABERGOLINE 0.5 MG PO SCH (09:00)
[2019-07-04] MEDS ORDERED: Ramipril CAP* 10 MG PO SCH (09:00)
[2019-07-04] MEDS ORDERED: Aspirin 81 mg CHEW TAB* 81 MG TAB.CHEW PO SCH (09:00)
[2019-07-04] MEDS: Insulin LISPRO* 1 UNITS UNIT SUBCUT SCH ×3 (09:26→18:36)
--- NOTE | 2019-07-04 12:45 | ECHO ---
*[facility]* [place] [address] Fax #: [phone] Transthoracic Echocardiogram Patient: Manjinder Rushing : 1945 Study Date: 07/04/2019 Age: 74 Gender: M HR: 70 bpm Height: 67 in /170.2 cm BSA: 2.2 m^2 Weight: 242.5 lb /110.2 kg BMI: 38.1 kg/m^2 *[place] Artist: * Ruby Guzman *Referring Physician: * Sharif RobertsonReading Physician: * Jenny Collins MD Indications: Tachycardia, supraventricular paroxysmal. History: Supraventricular tachycardia. Risk factors: Hypertension. Diabetes mellitus. Conclusions Summary: - Left ventricle: Systolic function is normal. The estimated ejection fraction is 50-55%. - Right ventricle: Systolic function is normal. - Mitral valve: There is trace regurgitation. - Tricuspid valve: There is trace regurgitation. - Pulmonary arteries: Systolic pressure can not be accurately estimated. - Compared with prior echocardiogram of 06/06/16, ejection fraction has normalized from 45-50% no longer see left ventricular hypertrophy, valve function is stable. Study data: Transthoracic echocardiogram. Procedure: Transthoracic echocardiography was performed. Image quality was adequate. Complete 2D, spectral Doppler, and color flow Doppler. Location: Bedside. Patient status: Inpatient. Patient room number: 444-2. Findings Left ventricle: The cavity size is normal. Wall thickness is normal. Systolic function is normal. The estimated ejection fraction is 50-55%. Wall motion is normal; there are no regional wall motion abnormalities. Doppler parameters are consistent with abnormal left ventricular relaxation (grade 1 diastolic dysfunction). Right ventricle: The cavity size is normal. Systolic function is normal. Ventricular septum: The ventricular septum is normal. Left atrium: The atrium is normal in size. Right atrium: The atrium is at the upper limits of normal in size. Atrial septum: No defect or patent foramen ovale is identified. Mitral valve: The leaflets are mildly thickened. No echocardiographic evidence for prolapse. There is no evidence of stenosis. There is trace regurgitation. Aortic valve: The valve is trileaflet. The leaflets are mildly thickened. There is no evidence of stenosis. There is no significant regurgitation. Tricuspid valve: Not well visualized. The leaflets are normal thickness. There is no evidence of stenosis. There is trace regurgitation. Pulmonic valve: The valve is structurally normal. There is no evidence of stenosis. There is trace regurgitation. Aorta: The aortic arch appears normal. Pericardium: There is no significant pericardial effusion. Pulmonary arteries: Systolic pressure can not be accurately estimated. Systemic veins: Inferior vena cava: Not well visualized. Pulmonary veins: The Pulmonary veins appear normal. Measurements Left ventricle Value Ref Right atrium Value Ref STEFANIA, LAX (L) 3.2 cm 4.2 - 5.8 SI dim, ES (H) 5.5 cm 3.4 - 5.3 ESD, LAX 2.7 cm 2.5 - 4.0 ML dim, ES, A4C 3.6 cm 2.6 - 4.4 FS, LAX (L) 16 % 25 - 43 PW, ED, LAX (H) 1.1 cm 0.6 - 1.0 Aortic valve Value Ref E', lat jesu, TDI (L) 8.7 cm/sec >=10.0 Peak v, S 1.12 m/sec ----- ---- E/e', lat jesu, 7 VTI, S 21.2 cm -------- - TDI Mean grad, S 3.0 mm Hg --------- E', med jesu, TDI 9.2 cm/sec >=7.0 Peak grad, S 5.0 mm Hg ----- ---- E/e', med jesu, 7 HUNG, VTI 3.10 cm^2 -------- - TDI HUNG, Vmax 2.94 cm^2 --------- E', avg, TDI 9.0 cm/sec E/e', avg, TDI 7 <=14 Mitral valve Value Ref Peak E 0.65 m/sec --------- LVOT Value Ref Peak A 0.85 m/sec --------- Diam, S 2.00 cm Decel time 253 ms --------- Area 3.1 cm^2 Peak E/A ratio 0.8 --------- Peak stef, S 1.05 m/sec Mean grad, S 2 mm Hg Pulmonic valve Value Ref SV 66 ml Peak v, S 0.86 m/sec --------- Peak grad, S 3.0 mm Hg --------- Ventricular septum Value Ref IVS, ED (H) 1.2 cm 0.6 - 1.0 Aortic root Value Ref Root diam 3.2 cm <4.3 Right ventricle Value Ref STEFANIA, LAX 2.9 cm Ascending aorta Value Ref STEFANIA minor ax, 3.5 cm 1.9 - 3.5 AAo AP diam, S 2.9 cm --------- A4C mid Aortic arch Value Ref Left atrium Value Ref Arch diam 2.5 cm --------- AP dim, ES (H) 4.50 cm 3.00 - 4.00 Decending aorta Value Ref ML dim, A4C 4.0 cm Silas peak stef 0.75 m/sec --------- SI dim, A4C 6.6 cm Vol/bsa, ES, A/L 27 ml/m^2 16 - 34 Legend: (L) and (H) sis values outside specified reference range. Prepared and electronically signed by Jenny Collins MD 07/04/2019 12:44
[2019-07-04] MEDS ORDERED: Perflutren Lipid Microsphere* 3 ML VIAL ONE (13:30)
[2019-07-04] MEDS ORDERED: Metoprolol Tartrate IV* 1 MG/ML 5 ML VIAL ONE (13:46)
[2019-07-04] MEDS ORDERED: Atropine SYRINGE* 0.1 MG/ML 10 ML SYRINGE (1 MG) ONE (13:46)
[2019-07-04] MEDS ORDERED: DOBUTamine 2000 MCG/ML IVPREMX 0 MG/0 ML BAG IV ONE (13:47)
--- NOTE | 2019-07-04 17:21 | PN ---
Progress Note - Progress Note Date of Service: 07/04/19 Note: Investigations: *[facility]* [place] [address] Fax #: [phone] Transthoracic Echocardiogram Patient: Eva Rushing : 1945 Study Date: 07/04/2019 Age: 74 Gender: M HR: 70 bpm Height: 67 in /170.2 cm BSA: 2.2 m^2 Weight: 242.5 lb /110.2 kg BMI: 38.1 kg/m^2 *[place]: * Ruby Guzman *Referring Physician: * Sharif RobertsonReading Physician: * Jenny Collins MD Indications: Tachycardia, supraventricular paroxysmal. History: Supraventricular tachycardia. Risk factors: Hypertension. Diabetes mellitus. Conclusions Summary: - Left ventricle: Systolic function is normal. The estimated ejection fraction is 50-55%. - Right ventricle: Systolic function is normal. - Mitral valve: There is trace regurgitation. - Tricuspid valve: There is trace regurgitation. - Pulmonary arteries: Systolic pressure can not be accurately estimated. - Compared with prior echocardiogram of 06/06/16, ejection fraction has normalized from 45-50% no longer see left ventricular hypertrophy, valve function is stable. Patient Name: EVA RUSHING JR Medical Record#: [id number] Ordering Physician: Sharif Robertson PUBLIC HEALTH STAFF NURSE Acct.#: [id number] : 1945 Age: 74 Sex: M Location: [address] [place] [address] MEDICAL/TELEMETRY Exam Date: 07/04/192222 ADM Status: ADM Aster Order Information: NM LUNG PERFUSION W/VENTILATIO Accession Number: [id number] CPT: 42202 Indication: SVT. Elevated troponin. Assess for potential pulmonary embolism. Comparison: July 03, 2019 Technique: Following administration of 14.900 mCi xenon-133 by inhalation anterior and posterior ventilation images were obtained. Following the administration of 6 6.200 mCi of Tc-99m macroaggregated albumin, perfusion images were obtained in multiple projections. Report: The ventilation pattern is uniform and demonstrates moderate air trapping. 2 small peripheral subsegmental perfusion defects are identified one involving the lateral segment of the RIGHT middle lobe and the second involving the LEFT upper lobe. No corresponding abnormality evident on chest radiograph. IMPRESSION: #. Low probability for pulmonary embolism based on Modified PIOPED. #. Air trapping consistent with obstructive lung disease. Low probability: <20% chance of pulmonary embolism. (Modified PIOPED) Medium probability: 20-79% chance of pulmonary embolism. (Modified PIOPED) High probability: <80% chance of pulmonary embolism. (Modified PIOPED) <Electronically signed by Thuan Méndez MD in OV> 07/04/19946 Dictated By: Thuan Méndez MD Dictated Date/Time: 07/04/19928 Transcribed Date/Time: 07/04/19928 Copy to: Assessment and plan: I have a verbal report that the stress echocardiogram was low risk. His V:Q scan is low probability for ischemic heart disease. I think that there is no clear precipitating factor for this episode of SVT. Dr. Jenny Collins is going to see him this evening. However, I have written the orders for discharge. I have not added any new medication. He will follow with both myself and Dr. Collins as an outpatient. I called the patient in the hospital and informed him of the above and he agrees with this plan Disposition:home Condition: good
[2019-07-04 20:06] VITALS: BP 111/60
--- NOTE | 2019-07-04 22:51 | CONS ---
CC: Dr. Sundeep Chand * CARDIOLOGY CONSULTATION: DATE OF CONSULT: 07/04/19 REASON FOR CONSULT: Supraventricular tachycardia and elevated troponin. HISTORY OF PRESENT ILLNESS: Mr. Rushing is a very nice 74-year-old gentleman with no prior cardiac history. He does have an extensive endocrine history, which will be outlined below and a history of pulmonary emboli. The patient was in his usual state of health just cutting snow peas on a countertop and acutely developed a sensation of rapid heartbeat, racing, palpitations, dizziness, and feeling faint. He had no associated chest discomfort, diaphoresis, nausea, arm or neck discomfort. His blood pressure was high when he checked it at home and the blood pressure cuff verified as tachycardia. He waited about 20 minutes and rested before he called the EMT. When the EMT found him, they had him do vagal maneuver, coughing, and bearing down which did not break the rhythm, and when he came to the ER, he was given Adenocard in the ambulance with conversion to normal sinus rhythm. The patient estimates he was in the abnormal rhythm approximately 45 minutes, since he has been out of the rhythm he feels well. The patient denies any sleep problems. His , who I saw with him, concurred that he does not snore or stop breathing. He has good energy level. The patient denies any new medications or missed medications. He drinks cups of coffee in the morning but no alcohol or recreational drugs. PAST MEDICAL HISTORY: The patient has a past medical history of: 1. Type 2 xri-rtbtmfh-[id number] diabetes. 2. Prolactinoma. 3. MEN1 syndrome. 4. Hypertension. 5. Pulmonary emboli. 6. Vitamin D deficiency, 2015. PAST SURGICAL HISTORY: 1. Parathyroidectomy. 2. Hand surgery. 3. Oral surgery. OUTPATIENT MEDICATIONS: Include: 1. Metformin 1000 mg b.i.d. 2. Altace 10 mg a day. 3. Calcium with vitamin D. 4. Naprosyn 220 mg t.i.d. p.r.n. 5. Cabergoline 0.5 mg twice weekly. 6. Vitamin B12. ALLERGIES: PENICILLIN. FAMILY HISTORY: Positive for mother having MEN, type 1; father having history of diabetes. 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 He lives with his . Nonsmoker, nondrinker. REVIEW OF SYSTEMS: Negative for recent orthopnea, PND, change in exercise ability. No recent fevers, chills, sweats, coughing, diarrhea, or constipation. He does have what he calls sciatica with hip pain after walking about 10 minutes and must be supported with something such as a grocery cart. All other review of systems was negative. PHYSICAL EXAM: The patient is 5 feet 7 inches, weighs 254 pounds with a BMI of 29. Vitals on arrival to the emergency room, blood pressure 150/90 with a sinus tach, 115 beats a minute. Currently blood pressure 118/68, pulse is 77, respiratory rate 16, oxygen saturation 98% on room air, and he is afebrile. General Appearance: Quite overweight older gentleman, appears in no acute distress. Psychologically, pleasant and cooperative. Neurologically awake, alert, and oriented to person, place, and time. Grossly normal sensory, motor function in the upper and lower extremities. Normal gait. Skin: Warm and dry. No cyanosis or rashes. HEENT: Pupils equal and round. Mucous membranes moist. Neck: Thick, but no appreciable increase in JVP or thyromegaly. Breath sounds were a bit distant but clear. No wheezing, rales, or rhonchi. Coronary: S1, S2, regular without murmurs or rubs. Abdomen: Quite overweight, active bowel sounds, soft, no appreciable hepatosplenomegaly. Lower extremities are free of edema and warm. DIAGNOSTIC STUDIES/LAB DATA: White count 6.3, hematocrit 37, platelets 193. INR 0.97, PTT 31, D-dimer 221. Sodium 138, potassium 4.0, chloride 108, bicarb 26, glucose 127, BUN 19, creatinine 1.1, magnesium 1.8. Troponin #1 0.09, troponin #2 0.13, troponin #4 0.10. TSH 2.25, free T4 1.08. AST 21, ALT 17. Magnesium on admission even lower at 1.7. Lipids from 12/14/17 shows total cholesterol 120, triglycerides 54, LDL cholesterol 73, and HDL cholesterol 36. Studies: V/Q scan is low probability for pulmonary embolism. Stress echo showed decreased exercise ability, was maximally stressed at the end of stage I of the standard Harpreet protocol. He had no inducible ischemia by EKG and echo criteria. Echocardiogram done today showed an ejection fraction of 50% to 55% with normal wall motion, normal right ventricular systolic function, trace mitral and trace tricuspid insufficiency. Chest x-ray from 07/04/19 showed bibasilar atelectasis and surgical clips. Rhythm strips from the ambulance show supraventricular tachycardia, regular with a cycle length of 320 milliseconds with the strips showing the break from the Adenocard showed no underlying flutter waves. He went from SVT to normal sinus rhythm. 12-lead ECG post cardioversion shows normal sinus rhythm, 108 beats a minute. QRS axis 0. Normal AV and IV conduction times. No delta waves appreciated. Corrected QT interval of [address] segments are normal. IMPRESSION AND PLAN: In summary, Mr. Rushing is a 74-year-old gentleman with acute onset of palpitations, racing of the heart, found to be in supraventricular tachycardia, rather rapid, 180 beats a minute that responded immediately to Adenocard. There is no obvious precipitating factor to the supraventricular tachycardia and he has not had it before by history. He had a mild bump in troponins and his atherosclerotic risk include diabetes, body habitus, he is inactive, hypertension. Based on his low probability V/Q and low-risk stress echo, we do not see an appreciable inciting factor to the supraventricular tachycardia. The elevated troponins are likely from demand ischemia from the tachyarrhythmia for 45 minutes itself. Short term, I am going to add low-dose Toprol-XL 12.5 mg a day and he may tolerate a higher dose as an outpatient. We discussed the importance of avoiding over-the- counter cold medications such as Sudafed, avoiding alcohol, avoiding excessive caffeine. He understands the relationship between sleep apnea and tachyarrhythmias but does not have an obvious history of this as above. assisted, I think, he will benefit from EP evaluation and possible ablation. 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 The patient received magnesium replacement as an inpatient and there is an option of continuing this as an outpatient orally if his gastrointestinal system tolerates. We will have the patient follow up in my office and do outpatient EP referral from there. Thank you for allowing me to assist in this nice gentlemen's care. [id number]/[facility] #: [id number] LEONEL
== END 2019-07-04 19:45 | disposition home or self-care (01) ==
LOC: ED 16:33 → MEDTELE 20:30
PROVIDERS: ADMIT Internal Medicine; ATTEND Internal Medicine
DX: I47.1 Supraventricular tachycardia (principal); R00.2 Palpitations; R79.89 Other specified abnormal findings of blood chemistry; E11.9 Type 2 diabetes mellitus without complications; D35.2 Benign neoplasm of pituitary gland; E66.01 Morbid (severe) obesity due to excess calories; E31.21 Multiple endocrine neoplasia [MEN] type I; I10 Essential (primary) hypertension; Z86.711 Personal history of pulmonary embolism; Z88.0 Allergy status to penicillin; Z86.39 Personal history of other endocrine, nutritional and metabolic disease; Z79.84 Long term (current) use of oral hypoglycemic drugs; Z79.899 Other long term (current) drug therapy; Z68.41 Body mass index [BMI] 40.0-44.9, adult
CPT/HCPCS: 36415; 71045; 71046; 71275; 78582; 80048; 80053; 83735; 84439; 84443; 84484; 85025; 85379; 85610; 85730; 93005; 93306; 93351; 96361; 96365; 96366; 96372; 99284; A9270-GY; A9540; A9558; G0378; J0461; J1250; J1650; J3475; J3490

== ENCOUNTER 2020-10-08 08:31 | Observation (INO) ==
[~2020-10-08 08:31] MED LIST changes: -Acetaminophen TAB* 325 MG PO PRN; -Buffered Lidocaine 0.9% SYRIN* 5 ML/SYR SYRINGE INTRADERM ONE; -Buffered Lidocaine 0.9% SYRIN* 5 ML/SYR SYRINGE ONE; +Buffered Lidocaine 1% SYRIN 1 ml INTRADERM ONE; -Cyclopentolate 1% OPTH.SOL* 2 ML BTL ONE; +Dexamethasone IV 4 MG/ML VIAL 1 ml VIAL ONE; +Glycopyrrolate IV 0.2 MG/ML 1 ML VIAL ONE; +HYDROmorphone 1 MG/1 ML SYRINGE ONE; +Ketamine HCL 50 mg/ml 10 ml VIAL (500 MG) ONE; -Ketorolac 0.5% OPHTH (NF) 0.5 % 5 ML BTL ONE; +Lactated Ringers 1000 ml BAG 1,000 ML IV SCH; -Lidocaine 1% MPF* 2 ML VIAL ONE; -Lidocaine 2% EPI 1:200000 MPF* 20 ML VIAL ONE; +Lidocaine 2% PF 5 ML VIAL ONE; -Midazolam* 1 MG/ML 2 ML VIAL (2 MG) ONE; -Neomycin/Polymy/Dex OPTH.SUSP* MAXITROL 0.1% 5 ML ONE; +Ondansetron 4 mg VIAL 2 MG/ML 2 ml VIAL ONE; -Phenylephrine 2.5% OPTH.SOL* 2 ML BTL ONE; +Phenylephrine IV 10 MG/ML 1 ml VIAL ONE; -Povidone Iodine 5% OPTH* 30 ML BTL ONE; -Proparacaine 0.5% OPHTH.SOL* 15 ML BTL ONE; +Propofol 10 MG/ML 20 ML BTL ONE; +Rocuronium 50 mg VIAL 10 mg/ml 5 ml VIAL (50 mg) ONE; -acetaZOLAMIDE TAB* 250 MG ONE
[2020-10-08] MEDS ORDERED: Buffered Lidocaine 1% SYRIN 1 ml INTRADERM ONE (09:06)
[2020-10-08 09:45] LABS: Hematocrit 41 % (42-52); Hemoglobin 13.3 g/dL (14.0-18.0); Mean Corpuscular HGB Conc 33 g/dL (31-36); Mean Corpuscular Hemoglobin 30 pg (27-31); Mean Corpuscular Volume 92 fL (80-94); Mean Platelet Volume 8.7 fL (7.4-10.4); Platelet Count 222 10^3/uL (150-450); Red Blood Count 4.41 10^6 /uL (4.18-5.48); Red Cell Distribution Width 15 % (10-15); White Blood Count 6.7 10^3/uL (3.5-10.8)
[2020-10-08] MEDS ORDERED: Vancomycin 1,750 MG in NS 0.9% 500 ml BAG 500 ML IVPB ONE (10:00)
[2020-10-08] MEDS ORDERED: Bupivacaine 0.25% EPI 200,000 30 ML SDV ONE (10:43)
[2020-10-08] MEDS ORDERED: Bacitracin INJECTION 50,000 UNITS ONE ×2 (10:43→15:33)
[2020-10-08] MEDS ORDERED: EPHEDrine (Pressors) 50 MG/ML VIAL ONE (11:51)
[2020-10-08] MEDS ORDERED: Phenylephrine 40 mcg/mL 10mL (400mcg) SYRINGE ONE (11:51)
[2020-10-08] MEDS ORDERED: HYDROmorphone 1 MG/1 ML SYRINGE IV PRN (12:12)
[2020-10-08] MEDS ORDERED: fentaNYL 100 mcg/2 ml 50 MCG/ML VIAL IV PRN (12:12)
[2020-10-08] MEDS ORDERED: Naloxone 0.4 mg VIAL 0.4 mg/ml 1 ml VIAL IV PRN (12:12)
[2020-10-08] MEDS ORDERED: Acetaminophen IV 1 GM/100ML 1,000 MG/100 ML VIAL IVPB PRN (12:12)
[2020-10-08] MEDS ORDERED: Ondansetron 4 mg VIAL 2 MG/ML 2 ml VIAL IV PRN ×2 (12:12→17:21)
[2020-10-08] MEDS ORDERED: Propofol 10 MG/ML 20 ML BTL ONE (16:37)
[2020-10-08] MEDS ORDERED: HYDROcodone/ACETAMIN 5/325 mg TAB PO PRN (17:21)
[2020-10-08] MEDS ORDERED: fentaNYL 100 mcg/2 ml 50 MCG/ML VIAL ONE (18:08)
[2020-10-08] MEDS ORDERED: Dextrose 50% Syringe 50 ml 25 GM/50 ML SYRINGE IV PUSH PRN (18:16)
[2020-10-08] MEDS ORDERED: CABERGOLINE 0.5 MG PO SCH (18:30)
[2020-10-08] MEDS: HYDROcodone/ACETAMIN 5/325 mg TAB PO PRN (19:19)
[2020-10-09] MEDS: HYDROcodone/ACETAMIN 5/325 mg TAB PO PRN ×3 (01:13→12:26)
[2020-10-09 06:35] LABS: Hematocrit 33 % (42-52); Hemoglobin 11.6 g/dL (14.0-18.0)
[2020-10-09] MEDS ORDERED: CYANOCOBALAMIN 1000 MCG SL SCH (09:00)
[2020-10-09 10:19] LABS: ABS Lymphocytes 1.2 10^3/ul (1.0-4.8); ABS Monocytes 0.9 10^3/ul (0-0.8); ABS Neutrophils 6.9 10^3/ul (1.5-7.7); Eosinophil % 0.1 %; Mean Corpuscular HGB Conc 35 g/dL (31-36); Mean Corpuscular Hemoglobin 31 pg (27-31); Mean Corpuscular Volume 90 fL (80-94); Mean Platelet Volume 8.7 fL (7.4-10.4); Platelet Count 165 10^3/uL (150-450); Red Cell Distribution Width 14 % (10-15)
[2020-10-09 14:14] VITALS: BP 138/78
== END 2020-10-09 14:48 | disposition home or self-care (01) ==
LOC: SSU 08:31 → OR 08:31
PROVIDERS: ADMIT Internal Medicine; ATTEND Neurological Surgery